=== PATIENT | female | born 1990 | race Caucasian/White ===

== ENCOUNTER → 2017-02-27 | Outpatient (CLI) | payer MEDICAID ==
--- NOTE | 2017-02-27 16:15 | Diagnostic Imaging Report ---
INDICATION: survey and cervical length evaluation. TECHNIQUE: Multiple real-time grayscale images were obtained over the gravid uterus. COMPARISON: None FINDINGS: heart rate is 140 beats per minute. The placenta is fundal. There is no placenta previa. There is adequate amniotic fluid seen. anatomy evaluation demonstrates normal size of the ventricles. The posterior fossa appears unremarkable. The urinary bladder appears unremarkable. There is suggestion of two umbilical arteries compatible with three-vessel cord. The cord insertion appears unremarkable. No hydronephrosis or cystic mass in the kidneys seen. The four-chamber view and the spine are not well seen due to position. The cervix is 4.9 cm in length and is closed. Biometrical measurements are as follows: Biparietal 4.1 cm, age 18 weeks 3 days. Head circumference 15.6 cm, age 18 weeks 4 days. Abdominal circumference 12.2 cm, age 17 weeks 6 days. Femur length 2.5 cm, age 17 weeks 5 days. Sonographic estimate age: 18 weeks 1 days. This compares to gestational age of 17 weeks and 6 days based on provided SANAZ of 08/01/2017. Sonographic estimated date of delivery: 07-30-2017. Estimated Weight: 211 gm (+/- +/-31 gm). LMP percentile: 42%. heart rate: 140 beats per minute. Cervical length: 4.9 cm. number: 1 of 1. IMPRESSION: Followup study within 2-3 weeks is recommended to reevaluate the spine and four-chamber view not well-seen due to position. Dictated by: Dictated on workstation # [id number]
== END ==
LOC: RAD 12:05
PROVIDERS: ATTEND Obstetrics & Gynecology
DX: Z34.92 Encounter for supervision of normal pregnancy, unspecified, second trimester (principal); Z36 Encounter for antenatal screening of mother
CPT/HCPCS: 76805; 76817

== ENCOUNTER → 2017-04-04 | Outpatient (CLI) | payer MEDICAID ==
--- NOTE | 2017-04-04 17:24 | Diagnostic Imaging Report ---
INDICATION: Followup obstetrical anatomy. TECHNIQUE: Multiple real-time grayscale images were obtained over the gravid uterus. COMPARISON: 02/27/2017. FINDINGS: There is a single viable intrauterine currently in a breech presentation. There is a visualization of four-chamber heart which appears unremarkable. There is continued suboptimal evaluation of the spine. Placenta is along the fundal aspect without previa. Normal amount of amniotic fluid appears to be present. heart rate: 130 beats per minute. Growth parameters not performed. IMPRESSION: Followup imaging demonstrates visualized cardiac structures appearing unremarkable. spine is again unable to be assessed. Dictated by: Dictated on workstation # [id number]
== END ==
LOC: RAD 14:18
PROVIDERS: ATTEND Obstetrics & Gynecology
DX: Z36 Encounter for antenatal screening of mother (principal)
CPT/HCPCS: 76816

== ENCOUNTER → 2017-04-26 | Outpatient (CLI) | payer MEDICAID ==
[~2017-04-26] MED LIST: ACET-77 PO; FERR-74 PO; IBUP-1773 PO
--- NOTE | 2017-04-26 16:06 | Diagnostic Imaging Report ---
INDICATION: Followup incomplete anatomical evaluation. TECHNIQUE: Multiple, limited real-time grayscale images were obtained over the gravid uterus. COMPARISON: 04/04/2017. FINDINGS: Fetus is currently in a breech presentation. Normal amount of amniotic fluid. Anteriorly positioned placenta without evidence for previa. cardiac activity at 144 beats per minute. The spine is better visualized on current study and has an unremarkable appearance. The remainder of the anatomical structures and/or biometrical measurements were not performed on this examination. IMPRESSION: Limited obstetrical sonogram imaging demonstrates a breech presentation of the fetus. spine has an unremarkable appearance. Dictated by: Dictated on workstation # [id number]
== END ==
LOC: RAD 13:13
PROVIDERS: ATTEND Obstetrics & Gynecology
DX: Z36 Encounter for antenatal screening of mother (principal); Z3A.00 Weeks of gestation of pregnancy not specified
CPT/HCPCS: 76816

== ENCOUNTER → 2017-06-27 | Outpatient (CLI) | payer MEDICAID ==
--- NOTE | 2017-06-27 14:01 | Diagnostic Imaging Report ---
INDICATION: Small for gestational age. TECHNIQUE: Multiple real-time grayscale images were obtained over the gravid uterus. COMPARISON: 04/26/2017. FINDINGS: There is a single living intrauterine . The biometry correlates with a gestational age of 35 weeks 3 days. The amniotic fluid index is 7.6 cm. The placenta is left lateral. There is no previa. The heart rate is 134 beats per minute and regular. IMPRESSION: Single living intrauterine with sonographically estimated gestational age of 35 weeks 3 days. This is concordant with gestational age by first sonogram which was 35 weeks 0 days. Biometrical measurements are as follows: Biparietal 8.7 cm, age 35 weeks 2 days. Head circumference 32.8 cm, age 37 weeks 2 days. Abdominal circumference 30.5 cm, age 34 weeks 3 days. Femur length 6.7 cm, age 34 weeks 2 days. Sonographic estimate age: 35 weeks 3 days. Sonographic estimated date of delivery: 07/29/17. Estimated Weight: 2504 gm (+/- 366 gm). LMP percentile: 39%. heart rate: 134 beats per minute. number: 1 of 1. Dictated by: Dictated on workstation # [id number]
== END ==
LOC: RAD 10:00
PROVIDERS: ATTEND Obstetrics & Gynecology
DX: Z36 Encounter for antenatal screening of mother (principal); Z3A.35 35 weeks gestation of pregnancy
CPT/HCPCS: 76816

== ENCOUNTER 2017-07-04 17:25 | Outpatient (CLI) | payer MEDICAID ==
[2017-07-04 18:30] VITALS: BP 117/78
--- NOTE | 2017-07-05 10:42 | Physician Query-Final Dx ---
MARIAN DAVIS 07/05/17 1041: Clinic Account Progress/Dx Physician Query: Please give diagnosis Date of Service Jul 04, 2017 at 17:25 OREN LAURA DO 07/05/17 1252: Clinic Account Progress/Dx DIAGNOSIS: Diagnosis decreased movement MARIAN DAVIS Jul 05, 2017 10:41 OREN LAURA DO Jul 05, 2017 12:52
[2017-07-27] MEDS ORDERED: ACET-77 PO (08:51)
[2017-07-27] MEDS ORDERED: IBUP-1773 PO (08:51)
[2017-07-27] MEDS ORDERED: FERR-74 PO (08:51)
== END 2017-07-04 18:50 | disposition home or self-care (01) ==
LOC: WSo 17:25 → LDRP 17:26 → WSo 18:50
PROVIDERS: ATTEND Obstetrics & Gynecology
DX: O36.8130 Decreased fetal movements, third trimester, not applicable or unspecified (principal); Z3A.36 36 weeks gestation of pregnancy
CPT/HCPCS: 59025

== ENCOUNTER 2017-07-25 07:50 | Inpatient (IN) | payer MEDICAID ==
[2017-07-25] VITALS (45 sets, daily range): BP systolic 89–137; BP diastolic 46–76
[~2017-07-25] VITALS: Ht 157.5 cm; Wt 94.3 kg
[2017-07-25] MEDS ORDERED: D5 LR IV SOLUTION 1,000 ML IV ONE (08:37)
[2017-07-25] MEDS ORDERED: MINERAL OIL CONCENTRATE 99.9% 15 ML UDC TOP PRN (08:45)
[2017-07-25] MEDS ORDERED: MISOPROSTOL 100 MCG (CYTOTEC) TAB PO NR (08:45)
[2017-07-25 08:46] LABS: BASOPHILS % (AUTO) 0 % (0-10); EOSINOPHILS # (AUTO) 0.1 10^3/uL (0.0-0.3); EOSINOPHILS % (AUTO) 2 % (0-10); LYMPHOCYTES # (AUTO) 1.9 X 10^3 (1.0-4.0); LYMPHOCYTES % (AUTO) 26 % (12-44); MEAN CORPUSCULAR HEMOGLOBIN 27 PG (25-34); MEAN CORPUSCULAR HGB CONC 33 G/DL (32-36); MEAN CORPUSCULAR VOLUME 80 FL (80-99); MEAN PLATELET VOLUME 10.9 FL (7.4-10.4); MONOCYTES # (AUTO) 0.4 X 10^3 (0.0-1.0); MONOCYTES % (AUTO) 5 % (0-12); NEUTROPHILS # (AUTO) 4.9 X 10^3 (1.8-7.8); NEUTROPHILS % (AUTO) 67 % (42-75); PLATELET COUNT 302 10^3/uL (130-400); RED BLOOD COUNT 4.18 10^6/uL (4.35-5.85); RED CELL DISTRIBUTION WIDTH 13.6 % (10.0-14.5); WHITE BLOOD COUNT 7.3 10^3/uL (4.3-11.0)
[2017-07-25] MEDS: D5 LR IV SOLUTION 1,000 ML IV SCH ×2 (08:47→16:29)
[2017-07-25 08:52] LABS: BILIRUBIN,URINE NEGATIVE (NEGATIVE); KETONES,URINE NEGATIVE (NEGATIVE); LEUKOCYTE ESTERASE ,URINE 1+ (NEGATIVE); NITRITE,URINE NEGATIVE (NEGATIVE); PH,URINE 7 (5-9); PROTEIN,URINE 1+ (NEGATIVE); UROBILINOGEN,URINE NORMAL (NORMAL)
[2017-07-25 09:08] LABS: WBC,URINE RARE /HPF
[2017-07-25] MEDS ORDERED: MISOPROSTOL 100 MCG (CYTOTEC) TAB PO ONE (13:30)
[2017-07-25] MEDS ORDERED: SUFENTA 0.6MCG/ML BUPIVA 0.125 100 ML ONE (14:03)
[2017-07-25] MEDS ORDERED: LACTATED RINGERS 1,000 ML IV SCH (15:11)
[2017-07-25] MEDS ORDERED: diphenhydrAMINE 50 MG/ML INJ (BENADRYL) IV PRN (15:15)
[2017-07-25] MEDS ORDERED: NALOXONE 0.4 MG/ML 1 ML (NARCAN) VIAL IV PRN ×2 (15:15)
[2017-07-25] MEDS ORDERED: ONDANSETRON 4 MG/2 ML (SDV) Z0FRAN IV PRN (15:15)
[2017-07-25] MEDS ORDERED: EPIDURAL (SUFENTA 0.6MCG/ML BUPIVA 0.125%) 100 ML BAG EPI SCH (15:15)
[2017-07-25] MEDS ORDERED: METOCLOPRAMIDE INJ 10 MG/2 ML (REGLAN) IV PRN (15:15)
[2017-07-25] MEDS ORDERED: OXYTOCIN/NORMAL SALINE 500 ML IV ONE (18:09)
[2017-07-25] MEDS ORDERED: OXYTOCIN/NORMAL SALINE 500 ML IV SCH ×2 (18:14→23:11)
[2017-07-25] MEDS ORDERED: FAMOTIDINE 20MG/2ML IV (PEPCID) ONE (19:39)
[2017-07-25] MEDS ORDERED: CITRIC ACID/SOB CIT (BICITRA) 30 ML UDC ONE (19:39)
[2017-07-25] MEDS ORDERED: LIDOCAINE/EPI 2% 1:200,00 (XYLOCAINE) 10 ML VIAL ONE (22:37)
[2017-07-25] MEDS ORDERED: MEASLES,MUMPS,RUBELLA 1 EA INJ SQ ONE (23:15)
[2017-07-25] MEDS ORDERED: TETANUS,DIPTH,PERTUSS P/F (BOOSTRIX) 0.5 ML VIAL IM ONE (23:15)
[2017-07-25] MEDS ORDERED: WITCH HAZEL(TUCKS) 40 EA JAR TOP PRN (23:15)
[2017-07-25] MEDS ORDERED: ACETAMINOPHEN 500 MG TAB (TYLENOL) PO PRN (23:15)
[2017-07-25] MEDS ORDERED: DIBUCAINE (NUPERCAINAL) 1% OINT 30 GM TOP PRN (23:15)
[2017-07-25] MEDS ORDERED: BENZOCAINE/MENTHOL (DERMOPLAST) 56 ML CAN TP PRN (23:15)
--- NOTE | 2017-07-25 23:35 | OB Labor & Delivery Record ---
Vag Delivery Note Vag Delivery Note Date of Delivery: 07/25/17 Preoperative Diagnosis: Teresa Arreaga is a 26 /Para 4 /3 ,Gestational Age 39 weeks for social induction Postoperative Diagnosis: Same Surgeon: OREN LAURA Anesthesia: epidural Delivery Type: vaginal Findings: Viable male , apgars 9/9, weight 6#8oz Lacerations: Intact placenta with 3 vessel cord. No nuchal cord, body cord or shoulder dystocia Estimated Blood Loss: 200 ml Complications: None Condition: Stable Description of Procedure: The patient is a 26 /Para 4 /3 ,Gestational Age 39 weeks for social induction]. She was admitted and informed consent was obtained. Her labor course was remarkable for misoprostol x 2 doses then AROM and pitocin. She did have a category II tracing in active labor with variable decelerations but there continued to be variability and accelerations. She progressed to complete dilatation and began to push. She was then set up for delivery. The 's head was delivered atraumatically in the MARIO position with a compound presentation (right hand at cheek and looped cord through arm). The shoulders and remainder of the infant's body were then delivered without difficulty. Upon delivery, the head was held below the level of the perineum and the mouth and nares were bulb suctioned. The cord was doubly clamped and cut and the infant was handed off to the pediatric staff. An intact placenta with 3-vessel cord delivered via Vickie and there was found to be minimal bleeding.~ Vigorous fundal massage was performed and the fundus was found to be firm. IV oxytocin was given. Examination of the vagina and perineum revealed a no lacerations. Following the delivery, sponge, instrument and needle counts were correct. Mom and baby were both in stable condition in the labor suite. Vitals - Labs Vital Signs - I&O Vital Signs Date Time Temp Pulse Resp B/P (MAP) Pulse Ox O2 Delivery O2 Flow Rate FiO2 07/25/17 21:00 67 18 102/50 Room Air 07/25/17 20:45 73 18 96/51 Room Air 07/25/17 20:30 70 18 113/59 Room Air 07/25/17 20:15 67 18 127/58 Room Air 07/25/17 20:00 68 18 111/58 Room Air 07/25/17 19:45 72 18 137/62 Room Air 07/25/17 19:30 97.8 70 18 112/59 Room Air 07/25/17 19:15 65 18 106/57 Room Air 07/25/17 19:00 64 18 109/58 Room Air 07/25/17 18:15 68 18 102/58 Room Air 07/25/17 18:00 62 18 110/58 Room Air 07/25/17 17:45 67 18 115/63 Room Air 07/25/17 17:30 68 18 114/57 Room Air 07/25/17 17:15 75 18 112/68 Room Air 07/25/17 17:00 96.6 64 18 110/71 Room Air 07/25/17 16:45 72 18 111/66 Room Air 07/25/17 16:30 72 18 107/61 100 Room Air 07/25/17 16:15 Room Air 07/25/17 16:00 69 18 105/64 98 Room Air 07/25/17 15:45 77 18 99 Room Air 07/25/17 15:30 97.5 59 18 99 Room Air 07/25/17 15:25 75 18 122/59 99 Room Air 07/25/17 15:22 83 18 120/59 98 Room Air 07/25/17 15:15 69 18 115/60 98 Room Air 07/25/17 15:13 75 113/58 Room Air 07/25/17 15:10 77 117/55 99 Room Air 07/25/17 15:05 65 124/58 99 Room Air 07/25/17 15:00 73 18 122/61 100 Room Air 07/25/17 14:58 74 117/58 Room Air 07/25/17 14:55 76 125/63 100 Room Air 07/25/17 14:50 74 126/62 100 Room Air 07/25/17 14:45 71 128/62 07/25/17 14:10 72 18 124/74 Room Air 07/25/17 13:10 96.9 71 18 117/58 Room Air 07/25/17 11:10 74 18 112/59 Room Air 07/25/17 08:05 96.9 114 18 113/74 Room Air I & O 07/26/17 07:00 Intake Total 1000 ml Balance 1000 ml Labs Laboratory Tests 07/25/17 08:20: White Blood Count 7.3, Red Blood Count 4.18L, Hemoglobin 11.1L, Hematocrit 34L, Mean Corpuscular Volume 80, Mean Corpuscular Hemoglobin 27, Mean Corpuscular Hemoglobin Concent 33, Red Cell Distribution Width 13.6, Platelet Count 302, Mean Platelet Volume 10.9H, Neutrophils (%) (Auto) 67, Lymphocytes (%) (Auto) 26 , Monocytes (%) (Auto) 5, Eosinophils (%) (Auto) 2, Basophils (%) (Auto) 0, Neutrophils # (Auto) 4.9, Lymphocytes # (Auto) 1.9, Monocytes # (Auto) 0.4, Eosinophils # (Auto) 0.1, Basophils # (Auto) 0.0 07/25/17 08:30: Urine Color YELLOW, Urine Clarity CLEAR, Urine pH 7, Urine Specific [place] 1.010L, Urine Protein 1+H, Urine Glucose (UA) NEGATIVE, Urine Ketones NEGATIVE, Urine Nitrite NEGATIVE, Urine Bilirubin NEGATIVE, Urine Urobilinogen NORMAL, Urine Leukocyte Esterase 1+H, Urine RBC (Auto) NEGATIVE, Urine RBC NONE, Urine WBC RARE, Urine Squamous Epithelial Cells 2-5, Urine Crystals NONE, Urine Bacteria NEGATIVE, Urine Casts NONE, Urine Mucus NEGATIVE, Urine Culture Indicated NO OREN LAURA DO Jul 25, 2017 23:35
[2017-07-26] VITALS (15 sets, daily range): BP systolic 92–116; BP diastolic 46–73
[2017-07-26] MEDS: IBUPROFEN 600 MG (MOTRIN) TAB PO SCH ×4 (02:15→20:02)
[2017-07-26 05:52] LABS: BASOPHILS % (AUTO) 0 % (0-10); EOSINOPHILS # (AUTO) 0.1 10^3/uL (0.0-0.3); EOSINOPHILS % (AUTO) 1 % (0-10); LYMPHOCYTES # (AUTO) 2.3 X 10^3 (1.0-4.0); LYMPHOCYTES % (AUTO) 23 % (12-44); MEAN CORPUSCULAR HEMOGLOBIN 27 PG (25-34); MEAN CORPUSCULAR HGB CONC 33 G/DL (32-36); MEAN CORPUSCULAR VOLUME 82 FL (80-99); MEAN PLATELET VOLUME 11.3 FL (7.4-10.4); MONOCYTES # (AUTO) 0.9 X 10^3 (0.0-1.0); MONOCYTES % (AUTO) 9 % (0-12); NEUTROPHILS # (AUTO) 6.7 X 10^3 (1.8-7.8); NEUTROPHILS % (AUTO) 67 % (42-75); PLATELET COUNT 259 10^3/uL (130-400); RED BLOOD COUNT 3.73 10^6/uL (4.35-5.85); RED CELL DISTRIBUTION WIDTH 13.6 % (10.0-14.5)
[2017-07-26] MEDS: CATHETER FLUSH 10 ML SYR IV SCH ×4 (08:35→14:28)
[2017-07-26] MEDS: PRENATAL VITAMIN 1 EA TAB PO SCH (08:35)
[2017-07-26] MEDS: FERROUS SULF 325 MG (IRON) TAB PO SCH (08:35)
--- NOTE | 2017-07-26 14:08 | Anesthesia-Regional Post-Op ---
Regional Patient Condition Mental Status: Alert, Oriented x3 Circulation: Same as Pre-Op Headache: Absent Sensation: Full Recovery Motor Block: Absent Post Op Complications Complications None Follow Up Care/Instructions Patient Instructions None needed. Anesthesia/Patient Condition Patient is doing well, no complaints, stable vital signs, no apparent adverse anesthesia problems. No complications reported per nursing. DARCY JOHNSON CRNA Jul 26, 2017 14:08
--- NOTE | 2017-07-26 21:34 | Progress Note-Standard ---
Standard Progress Note Progress Notes/Assess & Plan Date Seen by Provider: Jul 26, 2017 Time Seen by Provider: 17:40 Progress/Assessment & Plan Doing well. Some cramping with breast feeding. Vital Signs 07/26/17 16:09 Temp 96.7 Pulse 79 Resp 16 B/P (MAP) 106/69 Pulse Ox 96 O2 Delivery Room Air Laboratory Tests Test 07/26/17 05:30 Range/Units White Blood Count 10.0 4.3-11.0 10^3/uL Red Blood Count 3.73 L 4.35-5.85 10^6/uL Hemoglobin 10.0 L 11.5-16.0 G/DL Hematocrit 30 L 35-52 % Mean Corpuscular Volume 82 80-99 FL Mean Corpuscular Hemoglobin 27 25-34 PG Mean Corpuscular Hemoglobin Concent 33 32-36 G/DL Red Cell Distribution Width 13.6 10.0-14.5 % Platelet Count 259 130-400 10^3/uL Mean Platelet Volume 11.3 H 7.4-10.4 FL Neutrophils (%) (Auto) 67 42-75 % Lymphocytes (%) (Auto) 23 12-44 % Monocytes (%) (Auto) 9 0-12 % Eosinophils (%) (Auto) 1 0-10 % Basophils (%) (Auto) 0 0-10 % Neutrophils # (Auto) 6.7 1.8-7.8 X 10^3 Lymphocytes # (Auto) 2.3 1.0-4.0 X 10^3 Monocytes # (Auto) 0.9 0.0-1.0 X 10^3 Eosinophils # (Auto) 0.1 0.0-0.3 10^3/uL Basophils # (Auto) 0.0 0.0-0.1 10^3/uL PPD #1 s/p Mild acute blood loss anemia, on iron. Plan dc tomorrow OREN LAURA DO Jul 26, 2017 9:34 pm
[2017-07-27 02:15] VITALS: BP 104/67
[2017-07-27] MEDS: IBUPROFEN 600 MG (MOTRIN) TAB PO SCH ×2 (02:55→09:00)
[2017-07-27 08:45] VITALS: BP 105/54
[2017-07-27] MEDS ORDERED: FERR-74 PO (08:51)
[2017-07-27] MEDS ORDERED: ACET-77 PO (08:51)
[2017-07-27] MEDS ORDERED: IBUP-1773 PO (08:51)
--- NOTE | 2017-07-27 08:52 | Discharge Inst-Women's Service ---
Discharge Inst-Women's Serv Depart Medication/Instructions New, Converted or Re-Newed RX: RX on Chart Final Diagnosis social induction vaginal delivery mild acute blood loss anemia Consults/Follow Up Additional Follow Up: Yes (6 weeks) Activity Activity: Activity as Tolerated Driving Instructions: You May Drive NO SMOKING: NO SMOKING Nothing Inside Vagina: No Douching, No Goehner, No Tampons Diet Discharge Diet: No Restrictions Symptoms to Report to : Swelling Increased, Bleeding Excessive, Fever Over 101 Degrees F, Vaginal Bleeding Increase, Cramps in Feet or Legs, Vaginal Discharge OREN Munson DO Jul 27, 2017 8:52 am
[2017-07-27] MEDS: FERROUS SULF 325 MG (IRON) TAB PO SCH (09:00)
[2017-07-27] MEDS: PRENATAL VITAMIN 1 EA TAB PO SCH (09:00)
[2017-07-27] MEDS ORDERED: MEASLES,MUMPS,RUBELLA 1 EA INJ ONE (11:08)
== END 2017-07-27 11:55 | disposition home or self-care (01) | DRG 775 ==
LOC: LDRP 07:50
PROVIDERS: ADMIT Obstetrics & Gynecology; ATTEND Obstetrics & Gynecology
PROC: 10E0XZZ Delivery of Products of Conception, External Approach (ICD-10-PCS; principal; 2017-07-25)
PROC: 3E0P7GC Introduction of Other Therapeutic Substance into Female Reproductive, Via Natural or Artificial Opening (ICD-10-PCS; 2017-07-25)
DX: O90.81 Anemia of the puerperium (principal); D62 Acute posthemorrhagic anemia; Z3A.39 39 weeks gestation of pregnancy; Z37.0 Single live birth; Z23 Encounter for immunization; Z87.891 Personal history of nicotine dependence
CPT/HCPCS: 36415; 81000; 85025; 86850; 86900; 86901; 87088; 90707

== ENCOUNTER 2018-02-22 21:55 | Emergency (ER) | payer MEDICAID ==
[~2018-02-22] VITALS: Ht 157.5 cm; Wt 94.3 kg
[~2018-02-22 21:55] MED LIST changes: -FERR-74 PO; +FERR325T18 PO
[2018-02-22] MEDS ORDERED: PRAZ1CAP2 (22:33)
[2018-02-22] MEDS ORDERED: LAMO150T2 (22:33)
[2018-02-22] MEDS ORDERED: PARO40TA3 (22:33)
--- NOTE | 2018-02-22 23:13 | ED Lower Extremity ---
General Chief Complaint: Lower Extremity Stated Complaint: LEG INJ Nursing Triage Note: right leg pain Nursing Sepsis Screen: No Definite Risk History of Present Illness Date Seen by Provider: February 22, 2018 Time Seen by Provider: 23:00 Initial Comments 27-year-old female reports falling approximately 3-1/2 foot off of a porch landing on her right ankle. She is reporting pain in her right ankle and an abrasion just below her right knee. She is current on her tetanus shot. She' s had previous sprains to her right ankle but no surgeries. She denies head injury at the time of the fall. She does report that she was drinking vodka. She is a proximally 7 months and is breast-feeding. Onset: just prior to arrival Pain/Injury Location: right knee, right ankle Method of Injury: fell Modifying Factors: Improves With Immobilization, Improves With Rest Allergies and Home Medications Allergies Coded Allergies: No Known Drug Allergies (Unverified , 07/25/17) Home Medications Hydrocodone Bit/Acetaminophen 1 Tab Tab, 1 EACH PO Q6H PRN for PAIN Prescribed by: TATIANNA TUCKER on 02/22/18 9548 Patient Home Medication List Home Medication List Reviewed: Yes Constitutional: no symptoms reported, see HPI Musculoskeletal: see HPI, joint pain, joint swelling Skin: see HPI, other (superficial abrasion to the right leg, just below the knee.) Past Mioajze-Borsmh-Oujexx Hx Past Med/Social Hx: Reviewed Nursing Past Med/Soc Hx Patient Social History Alcohol Use: Regular Use Number of Drinks Today: 4 Alcohol Beverage of Choice: Wine, Vodka Recreational Drug Use: No Smoking Status: Current Everyday Smoker Type Used: Cigarettes Former Smoker, Quit: Jan 22, 2016 Recent Foreign Travel: No Contact w/Someone Who Travel: No Recent Infectious Disease Expo: No Recent Hopitalizations: No Immunizations Up To Date Tetanus Booster (TDap): Less than 5yrs PED Vaccines UTD: Yes Date of Influenza Vaccine: Jul 12, 2017 Seasonal Allergies Seasonal Allergies: No Past Medical History Surgeries: Yes (dental) Tonsillectomy Respiratory: No Cardiac: No Neurological: No : No Female Reproductive Disorders: Denies Sexually Transmitted Disease: No HIV/AIDS: No Genitourinary: No Gastrointestinal: No Musculoskeletal: Yes Scoliosis Endocrine: No HEENT: No Cancer: No Psychosocial: Yes PTSD, Bipolar Integumentary: No Blood Disorders: No Adverse Reaction/Blood Tranf: No Family Medical History Patient reports no known family medical history. Physical Exam Vital Signs Vital Signs - First Documented 02/22/18 22:34 Temp 97.7 Pulse 105 Resp 20 B/P (MAP) 132/102 (112) Pulse Ox 98 O2 Delivery Room Air Capillary Refill : Less Than 3 Seconds General Appearance: WD/WN, no apparent distress HEENT: PERRL/EOMI, normal ENT inspection, TMs normal, pharynx normal Neck: non-tender, full range of motion, supple, normal inspection Cardiovascular: normal peripheral pulses, regular rate, rhythm, no murmur Respiratory: chest non-tender, lungs clear, normal breath sounds, no respiratory distress Gastrointestinal: normal bowel sounds, non tender, soft Knees: right knee non-tender, right knee normal inspection, right knee normal range of motion Ankles: right ankle bone tenderness (most significantly over the medial malleolus), right ankle limited range of motion (secondary to pain), right ankle pain, right ankle soft tissue tenderness, right ankle swelling Feet: right foot non-tender, right foot no evidence of injury Neurologic/Tendon: normal sensation, normal motor functions, normal tendon functions Neurologic/Psychiatric: no motor/sensory deficits, alert, normal mood/affect, oriented x 3 Skin: normal color, warm/dry, other (superficial abrasion to right leg just distal to the knee) Procedures/Interventions Splinting and Joint Reduction : Pre-Proc Neuro Vasc Exam: normal Post-Proc Neuro Vasc Exam: normal Grey wrap: Yes Hand-Made Type: orthoglass Splint Application: Short Leg Progress/Results/Core Measures Results/Orders My Orders Orders - TATIANNA TUCKER Knee, Right, 3 Views (02/22/18 22:41) Ankle, Right, 3 Views (02/22/18 23:02) Rx-Hydrocodone/Apap 5-325 Mg (Rx-Vicodin (02/22/18 23:30) Tramadol Tablet (Ultram Tablet) (02/22/18 23:32) Medications Given in ED Current Medications Medications Dose Ordered Sig/Josselyn Route Start Time Stop Time Status Last Admin Dose Admin Acetaminophen/ Hydrocodone Bitart 1 ea Q4H PRN PO 02/22/18 23:30 02/22/18 23:41 DC 02/22/18 23:36 1 EA Vital Signs/I&O 02/22/18 02/22/18 02/22/18 22:34 23:36 23:37 Temp 97.7 97.7 97.8 Pulse 105 103 Resp 20 18 B/P (MAP) 132/102 (112) 121/80 Pulse Ox 98 97 O2 Delivery Room Air Room Air Blood Pressure Mean: 112 Progress Progress Note : Time: 23:00 Progress Note Initial evaluation completed, wound to the right leg with chlorhexidine and sterile saline. X-rays of the right ankle and right knee. 2320 x-rays show a trimalleolar fracture of the right ankle, discussed patient with Dr. Baer per phone agreed with treatment to splint and follow-up with him early next week for surgical plans. 2330 posterior and sugar tong splint applied with Ortho-Glass and secured with Grey wrap's. Patient tolerated splint application well, neurovascular status intact post splinting. Discharge instructions and return precautions reviewed with the patient. Departure Impression Primary Impression: Closed right trimalleolar fracture Qualified Codes: S82.851A - Displaced trimalleolar fracture of right lower leg , initial encounter for closed fracture Additional Impressions: Fall Qualified Codes: W19.XXXA - Unspecified fall, initial encounter Acute alcohol intoxication Qualified Codes: F10.929 - Alcohol use, unspecified with intoxication, unspecified Disposition: 01 HOME, SELF-CARE Condition: Stable Departure-Patient Inst. Decision time for Depature: 23:15 Referrals: NO,LOCAL PHYSICIAN (PCP/Family) Primary Care Physician Patient Instructions: Ankle Fracture (DC) Add. Discharge Instructions: Call Ortho [address] [place] [address] for follow up with Dr. Baer, he will see you early next week and plan surgery. Use crutches at all times, nonweight bearing on the right lower extremity. Leave your splint on at all times. Keep it clean and dry. You may take ibuprofen 600 mg every 8 hours for pain. Use your pain medication for hydrocodone for additional pain. Do not breast feed if taking the Hydrocodone. Keep your right ankle elevated higher than your heart. Ice to your right ankle 20 minutes every 2 hours while awake. Follow-up with your primary care provider if symptoms are not improving or worsen. Return to emergency department for new urgent health care problems. All discharge instructions reviewed with patient and/or family. Voiced understanding. Scripts Hydrocodone Bit/Acetaminophen (Hydrocodone/Acetaminophen 5/325mg Tablet) 1 Tab Tab 1 EACH PO Q6H PRN for PAIN, #20 TAB 0 Refills Prov: TATIANNA TUCKER 02/22/18 Copy Copies To 1: INES BAER AMY ARNP February 22, 2018 23:13
[2018-02-22] MEDS ORDERED: ACHD5005 PO (23:21)
[2018-02-22] MEDS ORDERED: RX-HYDROCODONE/APAP 5/325 MG #4 TAB PK PO PRN (23:30)
[2018-02-22 23:37] VITALS: BP 121/80
--- NOTE | 2018-02-23 07:10 | Diagnostic Imaging Report ---
INDICATION: Right knee injury and pain AP, lateral and oblique views of the right knee are obtained. FINDINGS: No acute fracture or dislocation is identified. No abnormal lytic or sclerotic focus is seen, and there is no radiopaque foreign body. IMPRESSION: No acute abnormality. Dictated by: Dictated on workstation # [id number]
--- NOTE | 2018-02-23 07:13 | Diagnostic Imaging Report ---
INDICATION: Right ankle pain and swelling AP, oblique and lateral views of the right ankle reveal comminuted trimalleolar fracture. There is mild displacement of medial malleolar fracture with intra-articular extension. There is also mild angulation of the distal fibular shaft fracture which involves the lateral malleolus. There is mild displacement of the posterior tibial fracture with mild offset of articular surfaces. Extensive swelling is noted. IMPRESSION: Comminuted trimalleolar right ankle fracture with intra-articular extension as described. Dictated by: Dictated on workstation # [id number]
== END 2018-02-22 23:41 | disposition home or self-care (01) ==
LOC: EDUNIT# 21:55 → ER 21:56
DX: S82.851A Displaced trimalleolar fracture of right lower leg, initial encounter for closed fracture (principal); F10.129 Alcohol abuse with intoxication, unspecified; F43.10 Post-traumatic stress disorder, unspecified; F31.9 Bipolar disorder, unspecified; F17.210 Nicotine dependence, cigarettes, uncomplicated; Z90.89 Acquired absence of other organs; W13.8XXA Fall from, out of or through other building or structure, initial encounter
CPT/HCPCS: 29515; 73562; 73610

== ENCOUNTER 2018-05-21 10:39 | Inpatient (IN) | payer MEDICAID ==
[~2018-05-21] VITALS: Ht 157.5 cm; Wt 49.9 kg
[~2018-05-21 10:39] MED LIST changes: +ACHD5005 PO; +LAMO150T2; +PARO40TA3; +PRAZ1CAP2
--- OUTSIDE RECORDS SUMMARY | 2018-05-21 10:45 | XMS REPORT ---
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 Name Role Phone GULSHAN QUIROGAMUSA Unavailable PROBLEMS Type Condition ICD9-CM Code JET09-SS Code Onset Dates Condition Status SNOMED Code Problem Bipolar II disorder F31.81 Active 23322417 Problem PTSD (post-traumatic stress disorder) F43.10 Active 27160617 Problem Bipolar disorder, unspecified F31.9 Active 53145184 Problem Post-traumatic stress disorder, chronic F43.12 Active 99981794 ALLERGIES No Known Allergies ENCOUNTERS Encounter Location Date Diagnosis [facility] [id number] [place] [phone] February, [facility] [id number] [place] [phone] Jan, Post-traumatic stress disorder, chronic F43.12 ; Bipolar disorder, unspecified F31.9 ; Bipolar II disorder F31.81 ; PTSD (post-traumatic stress disorder) F43.10 and BMI 40.0-44.9, adult Z68.41 [facility] [id number] [place] [phone] Dec, [facility] [id number] [place] [phone] Dec, Post-traumatic stress disorder, chronic F43.12 ; Bipolar disorder, unspecified F31.9 ; Bipolar II disorder F31.81 and PTSD (post- traumatic stress disorder) F43.10 [facility] [address], [place] [address] Nov, [facility] [id number] [place] [phone] Oct, Post-traumatic stress disorder, chronic F43.12 and Bipolar disorder, unspecified F31.9 [facility] [address] [facility] [id number] [place] [address] Oct, Bipolar II disorder F31.81 ; PTSD (post-traumatic stress disorder) F43.10 and Generalized anxiety disorder F41.1 [facility] [address] [facility] [id number] [address] Oct, Post-traumatic stress disorder, chronic F43.12 and Bipolar disorder, unspecified F31.9 [facility] [address] [facility] [id number], [place] [phone] Dec, Acute left otitis media H66.92 IMMUNIZATIONS No Known Immunizations SOCIAL HISTORY Never Assessed REASON FOR VISIT f/u PLAN OF CARE Activity Details Follow Up 4 Weeks Reason: VITAL SIGNS Height 62 in 2017-12-29 Weight 212.4 lbs 2017-12-29 Heart Rate 80 bpm 2017-12-29 Respiratory Rate 20 2017-12-29 BMI 38.84 kg/m2 2017-12-29 Blood pressure systolic 120 mmHg 2017-12-29 Blood pressure diastolic 72 mmHg 2017-12-29 MEDICATIONS Medication Instructions Dosage Frequency Start Date End Date Duration Status Prazosin HCl 1 MG Orally Once a day at bedtime 1 capsule Oct, 30 day(s) Active Paxil 40 mg Orally Once a day 1.5 tablets 24h Oct, 30 day(s) Active Lamictal 25 MG Orally Once a day 6 tablet 24h Oct, Active RESULTS No Results PROCEDURES No Known procedures INSTRUCTIONS MEDICATIONS ADMINISTERED No Known Medications MEDICAL (GENERAL) HISTORY Type Description Date Medical History asthma Medical History PTSD
--- OUTSIDE RECORDS SUMMARY | 2018-05-21 10:45 | XMS REPORT ---
Author Author JENNA QUIROGA [address] Address [address] [place] [address] Care Team Providers Care Air Conditioning Mechanic Industrial Name Role Phone GULSHAN QUIROGAMUSA Unavailable PROBLEMS Type Condition ICD9-CM Code [id number] Code Onset Dates Condition Status SNOMED Code Problem Bipolar II disorder F31.81 Active 86536602 Problem PTSD (post-traumatic stress disorder) F43.10 Active 33201144 Problem Bipolar disorder, unspecified F31.9 Active 91105751 Problem Post-traumatic stress disorder, chronic F43.12 Active 18837053 ALLERGIES No Information ENCOUNTERS Encounter Location Date Diagnosis [place] [id number] [place] [address]47[address] February, [place] [id number] [place] [address]95[address] 0913 Jan, Post-traumatic stress disorder, chronic F43.12 ; Bipolar disorder, unspecified F31.9 ; Bipolar II disorder F31.81 ; PTSD (post-traumatic stress disorder) F43.10 and BMI 40.0-44.9, adult Z68.41 [place] [id number] [place] [address]4826[address]446 Dec, [place] [id number] [place] [address] 19436- 6777 Dec, Post-traumatic stress disorder, chronic F43.12 ; Bipolar disorder, unspecified F31.9 ; Bipolar II disorder F31.81 and PTSD (post- traumatic stress disorder) F43.10 [place] [id number] [place] [address] 41002- 0095 Nov, [place] [id number] [place] [address] 58088- 8811 Oct, Post-traumatic stress disorder, chronic F43.12 and Bipolar disorder, unspecified F31.9 [facility] [address] [facility] [id number] [address] Oct, Bipolar II disorder F31.81 ; PTSD (post-traumatic stress disorder) F43.10 and Generalized anxiety disorder F41.1 [facility] [address] [facility] [id number] [address] Oct, Post-traumatic stress disorder, chronic F43.12 and Bipolar disorder, unspecified F31.9 [facility] [address] [facility] [id number] [place] [address] Dec, Acute left otitis media H66.92 IMMUNIZATIONS No Known Immunizations SOCIAL HISTORY Never Assessed REASON FOR VISIT Medication refill request PLAN OF CARE VITAL SIGNS MEDICATIONS Medication Instructions Dosage Frequency Start Date End Date Duration Status Lamictal 150 MG Orally Once a day 1 tablet 24h Oct, 30 days Active RESULTS No Results PROCEDURES No Known procedures INSTRUCTIONS MEDICATIONS ADMINISTERED No Known Medications MEDICAL (GENERAL) HISTORY Type Description Date Medical History asthma Medical History PTSD
--- OUTSIDE RECORDS SUMMARY | 2018-05-21 10:45 | XMS REPORT ---
Author Author ZEFERINO BREAUX Organization [facility] Address [address] [place] [address] Care Team Providers Care Sprinkler Tender Name Role Phone ZEFERINO BREAUX Unavailable PROBLEMS Type Condition ICD9-CM Code HLO16-ZO Code Onset Dates Condition Status SNOMED Code Problem Bipolar II disorder F31.81 Active 24272175 Problem PTSD (post-traumatic stress disorder) F43.10 Active 84052090 Problem Bipolar disorder, unspecified F31.9 Active 41858048 Problem Post-traumatic stress disorder, chronic F43.12 Active 56483260 ALLERGIES No Information ENCOUNTERS Encounter Location Date Diagnosis [place] [address] [place] [address]264- [address]28 February, [place] [id number] [place] [address]62- 5201 Jan, Post-traumatic stress disorder, chronic F43.12 ; Bipolar disorder, unspecified F31.9 ; Bipolar II disorder F31.81 ; PTSD (post-traumatic stress disorder) F43.10 and BMI 40.0-44.9, adult Z68.41 [address] [address] Dec, [address] [place] [address] 21295- 2201 Dec, Post-traumatic stress disorder, chronic F43.12 ; Bipolar disorder, unspecified F31.9 ; Bipolar II disorder F31.81 and PTSD (post- traumatic stress disorder) F43.10 [place] [address] [address] Nov, [place] [address] [place] [id number] [place] [address] 74928[address] 59[address] Oct, Post-traumatic stress disorder, chronic F43.12 and Bipolar disorder, unspecified F31.9 [facility] [address] [place] [id number] [address] Oct, Bipolar II disorder F31.81 ; PTSD (post-traumatic stress disorder) F43.10 and Generalized anxiety disorder F41.1 [facility] [address] [place] [id number] [address] Oct, Post-traumatic stress disorder, chronic F43.12 and Bipolar disorder, unspecified F31.9 [facility] [address] [facility] [id number] [address] Dec, Acute left otitis media H66.92 IMMUNIZATIONS No Known Immunizations SOCIAL HISTORY Never Assessed REASON FOR VISIT Requests return call PLAN OF CARE VITAL SIGNS MEDICATIONS Unknown Medications RESULTS No Results PROCEDURES No Known procedures INSTRUCTIONS MEDICATIONS ADMINISTERED No Known Medications MEDICAL (GENERAL) HISTORY Type Description Date Medical History asthma Medical History PTSD
--- OUTSIDE RECORDS SUMMARY | 2018-05-21 10:45 | XMS REPORT ---
Author Author ZEFERINO BREAUX Organization [facility] Address [address] [place] [address] Care Team Providers Care Guest Experience Representative Name Role Phone ZEFERINO BREAUX Unavailable PROBLEMS Type Condition ICD9-CM Code [id number] Code Onset Dates Condition Status SNOMED Code Problem Bipolar II disorder F31.81 Active 45635021 Problem PTSD (post-traumatic stress disorder) F43.10 Active 04527241 Problem Bipolar disorder, unspecified F31.9 Active 95752783 Problem Post-traumatic stress disorder, chronic F43.12 Active 46999860 ALLERGIES No Information ENCOUNTERS Encounter Location Date Diagnosis [place] [address] [place] [address]20[address] February, [place] [id number] [place] [address]99[address] Jan, Post-traumatic stress disorder, chronic F43.12 ; Bipolar disorder, unspecified F31.9 ; Bipolar II disorder F31.81 ; PTSD (post-traumatic stress disorder) F43.10 and BMI 40.0-44.9, adult Z68.41 [address] [address] Dec, [address] [place] [address] 09681- 53[address] Dec, Post-traumatic stress disorder, chronic F43.12 ; Bipolar disorder, unspecified F31.9 ; Bipolar II disorder F31.81 and PTSD (post- traumatic stress disorder) F43.10 [place] [address] [address] Nov, [place] [address] [place] [address] [id number] [place] [address] 94196- [address] Oct, Post-traumatic stress disorder, chronic F43.12 and Bipolar disorder, unspecified F31.9 [facility] [address] [facility] [id number] [address] Oct, Bipolar II disorder F31.81 ; PTSD (post-traumatic stress disorder) F43.10 and Generalized anxiety disorder F41.1 [facility] [address] [facility] [id number] [address] Oct, Post-traumatic stress disorder, chronic F43.12 and Bipolar disorder, unspecified F31.9 [facility] [address] [facility] [id number] [place] [address] Dec, Acute left otitis media H66.92 IMMUNIZATIONS No Known Immunizations SOCIAL HISTORY Never Assessed REASON FOR VISIT intake PLAN OF CARE Activity Details Follow Up 1 Week, 1 hour Reason: VITAL SIGNS MEDICATIONS Unknown Medications RESULTS No Results PROCEDURES Procedure Date Ordered Result Body Site Psych diagnostic evaluation, established patient Nov 15, 2017 INSTRUCTIONS MEDICATIONS ADMINISTERED No Known Medications MEDICAL (GENERAL) HISTORY Type Description Date Medical History asthma Medical History PTSD
--- OUTSIDE RECORDS SUMMARY | 2018-05-21 10:45 | XMS REPORT ---
Author Author ZEFERINO BREAUX Organization [facility] Address [address] [place] [address] Care Team Providers Care Floor Associate Name Role Phone ZEFERINO BREAUX Unavailable PROBLEMS Type Condition ICD9-CM Code GWS98-[id number] Code Onset Dates Condition Status SNOMED Code Problem Bipolar II disorder F31.81 Active 87815222 Problem PTSD (post-traumatic stress disorder) F43.10 Active 82032348 Problem Bipolar disorder, unspecified F31.9 Active 52099133 Problem Post-traumatic stress disorder, chronic F43.12 Active 35126437 ALLERGIES No Information ENCOUNTERS Encounter Location Date Diagnosis [place] [address] [place] [address]3851- [address] February, [place] [id number] [place] [address] 91272- [address] Jan, Post-traumatic stress disorder, chronic F43.12 ; Bipolar disorder, unspecified F31.9 ; Bipolar II disorder F31.81 ; PTSD (post-traumatic stress disorder) F43.10 and BMI 40.0-44.9, adult Z68.41 [address], [place] [address] Dec, [address] [place] [address] 70579- 8341 Dec, Post-traumatic stress disorder, chronic F43.12 ; Bipolar disorder, unspecified F31.9 ; Bipolar II disorder F31.81 and PTSD (post- traumatic stress disorder) F43.10 [place] [address], [place] [address] Nov, [place] [address] [place] [id number] [place] [address] 22948- 4926 Oct, Post-traumatic stress disorder, chronic F43.12 and Bipolar disorder, unspecified F31.9 [facility] [address] [facility] [id number] [address] Oct, Bipolar II disorder F31.81 ; PTSD (post-traumatic stress disorder) F43.10 and Generalized anxiety disorder F41.1 [facility] [address] [facility] [id number], [place] [address] Oct, Post-traumatic stress disorder, chronic F43.12 and Bipolar disorder, unspecified F31.9 [facility] [address] [facility] [id number], [place] [address] Dec, Acute left otitis media H66.92 IMMUNIZATIONS No Known Immunizations SOCIAL HISTORY Never Assessed REASON FOR VISIT f/u PLAN OF CARE Activity Details Follow Up Next available Reason: VITAL SIGNS MEDICATIONS Unknown Medications RESULTS No Results PROCEDURES Procedure Date Ordered Result Body Site Psychotherapy, patient &/family, 45 minutes, established patient Nov 21, 2017 INSTRUCTIONS MEDICATIONS ADMINISTERED No Known Medications MEDICAL (GENERAL) HISTORY Type Description Date Medical History asthma Medical History PTSD
--- OUTSIDE RECORDS SUMMARY | 2018-05-21 10:45 | XMS REPORT ---
Author Author MERA JASSI [facility] Address [address] [place] [address] Care Team Providers Care Corporate Claims Examiner Name Role Phone MERAJASSI Unavailable PROBLEMS Type Condition ICD9-CM Code YKI12-BS Code Onset Dates Condition Status SNOMED Code Problem Bipolar II disorder F31.81 Active 90170867 Problem PTSD (post-traumatic stress disorder) F43.10 Active 72390528 Problem Bipolar disorder, unspecified F31.9 Active 54178691 Problem Post-traumatic stress disorder, chronic F43.12 Active 92356951 ALLERGIES No Known Allergies ENCOUNTERS Encounter Location Date Diagnosis [place] [address] [place] [id number] [place] [address] February, [place] [address] [place] [address] [id number] [place] [address] 22898- 7367 Jan, Post-traumatic stress disorder, chronic F43.12 ; Bipolar disorder, unspecified F31.9 ; Bipolar II disorder F31.81 ; PTSD (post-traumatic stress disorder) F43.10 and BMI 40.0-44.9, adult Z68.41 [place] [address], [place] [address] Dec, [place] [address] [place] [id number] [place] [address] 74460- 6604 Dec, Post-traumatic stress disorder, chronic F43.12 ; Bipolar disorder, unspecified F31.9 ; Bipolar II disorder F31.81 and PTSD (post- traumatic stress disorder) F43.10 [place] [address], [place] [address] Nov, [place] [address] [place] [id number] [place] [address] 50683- 1569 Oct, Post-traumatic stress disorder, chronic F43.12 and Bipolar disorder, unspecified F31.9 [facility] [address] [facility] [id number], [place] [address] Oct, Bipolar II disorder F31.81 ; PTSD (post-traumatic stress disorder) F43.10 and Generalized anxiety disorder F41.1 [facility] [address] [facility] [id number] [address] Oct, Post-traumatic stress disorder, chronic F43.12 and Bipolar disorder, unspecified F31.9 [facility] [address] [facility] [id number], [place] [address] Dec, Acute left otitis media H66.92 IMMUNIZATIONS No Known Immunizations SOCIAL HISTORY Never Assessed REASON FOR VISIT intake----LIAMennettRICHARD PLAN OF CARE Activity Details Follow Up 4 Weeks Reason: f/u VITAL SIGNS Height 62 in 2017-11-20 Weight 206 lbs 2017-11-20 Heart Rate 70 bpm 2017-11-20 Respiratory Rate 20 2017-11-20 BMI 37.67 kg/m2 2017-11-20 Blood pressure systolic 110 mmHg 2017-11-20 Blood pressure diastolic 80 mmHg 2017-11-20 MEDICATIONS Medication Instructions Dosage Frequency Start Date End Date Duration Status Prazosin HCl 1 MG Orally Once a day at bedtime 1 capsule Oct, 30 day(s) Active Paxil 40 mg Orally Once a day 1.5 tablets 24h Oct, 30 day(s) Active Lamictal 25 MG Orally Once a day for two weeks, then 2 tablets daily 1 tablet Oct, 30 day(s) Active RESULTS No Results PROCEDURES No Known procedures INSTRUCTIONS MEDICATIONS ADMINISTERED No Known Medications MEDICAL (GENERAL) HISTORY Type Description Date Medical History asthma Medical History PTSD
--- NOTE | 2018-05-21 11:41 | ED Lower Extremity ---
General Chief Complaint: Lower Extremity Stated Complaint: RT ANKLE SURGICAL SIGHT RED Nursing Triage Note: Pt reports redness, swelling, and increased pain to R lower extremity since Saturday 05/19. Pt had plates put in ankle in January by Dr. Leon. Nursing Sepsis Screen: Possible Sepsis Risk Source: patient Exam Limitations: no limitations History of Present Illness Date Seen by Provider: May 21, 2018 Time Seen by Provider: 11:40 Initial Comments to ER with redness swelling increased pain and drainage from the right ankle. the symptoms began on Monday 2 days ago. She had a closed trimalleolar ankle fracture in January of this year splinted discharged home and had orthopedic follow-up in the outpatient setting. Hardware was placed at about the beginning of February or end of January according to the patient. 2 days ago she developed these symptoms including some drainage from the inferior aspect of the incision over the medial malleolus. She does report systemic symptoms including chills nausea vomiting poor appetite lightheadedness and general malaise. on arrival to ER she is tachycardic at 115 and with a blood pressure of 100/52. She states that she has an appointment scheduled with Dr. Leon tomorrow but she called his office today and they advised her to come to the emergency room Onset: just prior to arrival Severity: moderate Pain/Injury Location: right ankle Method of Injury: fell Modifying Factors: Worse With Movement Allergies and Home Medications Allergies Coded Allergies: No Known Drug Allergies (Unverified , 07/25/17) Patient Home Medication List Home Medication List Reviewed: Yes Constitutional: see HPI, chills EENTM: see HPI Respiratory: no symptoms reported Cardiovascular: no symptoms reported Genitourinary: no symptoms reported Musculoskeletal: see HPI Skin: see HPI, dryness Psychiatric/Neurological: No Symptoms Reported Past Vysyevc-Lvbvbp-Hnaqos Hx Patient Social History Alcohol Beverage of Choice: Wine, Vodka Type Used: Cigarettes Former Smoker, Quit: Jan 22, 2016 Recent Foreign Travel: No Contact w/Someone Who Travel: No Recent Infectious Disease Expo: No Recent Hopitalizations: No Immunizations Up To Date Tetanus Booster (TDap): Less than 5yrs PED Vaccines UTD: Yes Date of Influenza Vaccine: Jul 12, 2017 Seasonal Allergies Seasonal Allergies: No Past Medical History Surgeries: Yes (dental) Tonsillectomy Respiratory: No Cardiac: No Neurological: No Female Reproductive Disorders: Denies Sexually Transmitted Disease: No HIV/AIDS: No Genitourinary: No Gastrointestinal: No Musculoskeletal: Yes Scoliosis Endocrine: No HEENT: No Cancer: No Psychosocial: Yes PTSD, Bipolar Integumentary: No Blood Disorders: No Adverse Reaction/Blood Tranf: No Family Medical History Patient reports no known family medical history. Physical Exam Vital Signs Vital Signs - First Documented 05/21/18 10:57 Temp 98.7 Pulse 98 Resp 18 B/P (MAP) 110/76 (87) Pulse Ox 100 O2 Delivery Room Air Capillary Refill : Less Than 3 Seconds Height, Weight, BMI Height: 5'2.00" Weight: 220lbs. 0.0oz. 99.834180bn; 38.0 BMI Method:Stated General Appearance: WD/WN, no apparent distress HEENT: PERRL/EOMI, normal ENT inspection Neck: non-tender, full range of motion Respiratory: no respiratory distress, no accessory muscle use Gastrointestinal: normal bowel sounds, non tender Hips: bilateral hip non-tender, bilateral hip normal inspection, bilateral hip normal range of motion Legs: bilateral leg non-tender, bilateral leg normal inspection, bilateral leg normal range of motion Knees: bilateral knee non-tender, bilateral knee normal inspection, bilateral knee normal range of motion Ankles: right ankle pain, right ankle soft tissue tenderness, right ankle swelling (there is erythema circumferentially about the right lower extremity that extends proximally to the mid lower leg. There is some ddried purulent material around the anterior aspect of incision over the medial malleolus with some drainage. Drainage appears serous. Culture was collected and sent to lab. She is tachycardic and hypotensive so we'll pursue a sepsis workup) Feet: right foot swelling, right foot other (sshe does have normal sensation of the toesnoted wiggle the toes and brisk capillary refill of all toes.) Neurologic/Psychiatric: alert, normal mood/affect, oriented x 3 Skin: normal color, warm/dry, other (erythema right lower extremity otherwise no rash or petechiae) Progress/Results/Core Measures Results/Orders Lab Results Laboratory Tests Test 05/21/18 11:38 Range/Units White Blood Count 14.1 H 4.3-11.0 10^3/uL Red Blood Count 4.82 4.35-5.85 10^6/uL Hemoglobin 13.3 11.5-16.0 G/DL Hematocrit 38 35-52 % Mean Corpuscular Volume 78 L 80-99 FL Mean Corpuscular Hemoglobin 28 25-34 PG Mean Corpuscular Hemoglobin Concent 35 32-36 G/DL Red Cell Distribution Width 14.0 10.0-14.5 % Platelet Count 301 130-400 10^3/uL Mean Platelet Volume 10.3 7.4-10.4 FL Neutrophils (%) (Auto) 77 H 42-75 % Lymphocytes (%) (Auto) 15 12-44 % Monocytes (%) (Auto) 8 0-12 % Eosinophils (%) (Auto) 0 0-10 % Basophils (%) (Auto) 0 0-10 % Neutrophils # (Auto) 10.9 H 1.8-7.8 X 10^3 Lymphocytes # (Auto) 2.1 1.0-4.0 X 10^3 Monocytes # (Auto) 1.1 H 0.0-1.0 X 10^3 Eosinophils # (Auto) 0.0 0.0-0.3 10^3/uL Basophils # (Auto) 0.0 0.0-0.1 10^3/uL Neutrophils % (Manual) 73 % Lymphocytes % (Manual) 20 % Monocytes % (Manual) 6 % Eosinophils % (Manual) 1 % Blood Morphology Comment NORMAL Erythrocyte Sedimentation Rate 66 H 0-20 MM/HR Prothrombin Time 14.5 12.2-14.7 SEC INR Comment 1.1 0.8-1.4 Activated Partial Thromboplast Time 35 24-35 SEC Sodium Level 134 L 135-145 MMOL/L Potassium Level 3.2 L 3.6-5.0 MMOL/L Chloride Level 101 98-107 MMOL/L Carbon Dioxide Level 18 L 21-32 MMOL/L Anion Gap 15 H 5-14 MMOL/L Blood Urea Nitrogen 12 7-18 MG/DL Creatinine 0.93 0.60-1.30 MG/DL Estimat Glomerular Filtration Rate > 60 BUN/Creatinine Ratio 13 Glucose Level 96 70-105 MG/DL Lactic Acid Level 2.10 *H 0.50-2.00 MMOL/L Calcium Level 10.0 8.5-10.1 MG/DL Total Bilirubin 0.8 0.1-1.0 MG/DL Aspartate Amino Transf (AST/SGOT) 21 5-34 U/L Alanine Aminotransferase (ALT/SGPT) 16 0-55 U/L Alkaline Phosphatase 151 H 40-136 U/L C-Reactive Protein High Sensitivity 34.85 H 0.00-0.50 MG/DL Total Protein 8.3 H 6.4-8.2 GM/DL Albumin 4.1 3.2-4.5 GM/DL Serum Test, Qualitative NEGATIVE NEGATIVE My Orders Orders - ELVA JOINER APRN Cbc With Automated Diff (05/21/18 11:07) Erythrocyte Sedimentation Rate (05/21/18 11:07) Hs C Reactive Protein (05/21/18 11:07) Ankle, Right, 3 Views (05/21/18 11:07) Hcg,Qualitative Serum (05/21/18 11:07) Protime With Inr (05/21/18 11:38) Partial Thromboplastin Time (05/21/18 11:38) Ns Iv 1000 Ml (Sodium Chloride 0.9%) (05/21/18 11:45) Blood Culture (05/21/18 11:38) Lactic Acid Analyzer (05/21/18 11:38) Wound Culture (05/21/18 11:41) Fentanyl Injection (Sublimaze Injection (05/21/18 11:45) Ketorolac Injection (Toradol Injection) (05/21/18 11:45) Us Venous Lower Ext Coral (05/21/18 11:38) Manual Differential (05/21/18 11:38) Cefepime Injection (Maxipime Injection) (05/21/18 12:30) Comprehensive Metabolic Panel (05/21/18 12:39) Medications Given in ED Current Medications Medications Dose Ordered Sig/Josselyn Route Start Time Stop Time Status Last Admin Dose Admin Cefepime HCl 2000 mg/Sodium Chloride 50 ml @ 100 mls/hr ONCE ONCE IV 05/21/18 12:30 05/21/18 12:59 DC 05/21/18 13:12 100 MLS/HR Fentanyl Citrate 50 mcg ONCE ONCE IVP 05/21/18 11:45 05/21/18 11:46 DC 05/21/18 11:51 50 MCG Ketorolac Tromethamine 15 mg ONCE ONCE IVP 05/21/18 11:45 05/21/18 11:46 DC 05/21/18 11:51 15 MG Vital Signs/I&O 05/21/18 10:57 Temp 98.7 Pulse 98 Resp 18 B/P (MAP) 110/76 (87) Pulse Ox 100 O2 Delivery Room Air Blood Pressure Mean: 87 Diagnostic Imaging Diagonstic Imaging: Xray Comments NAME: MEEK DUEÑAS MED REC#: [id number] PT STATUS: REG ER : 1990 PHYSICIAN: ELVA JOINER APRN ADMIT DATE: 05/21/18/ER Draft Date of Exam:05/21/18 ANKLE, RIGHT, 3 VIEWS INDICATION: Recent right ankle surgery. Now with redness, swelling, and pain in the right ankle. COMPARISON: 02/22/2018 FINDINGS: 3 radiographic views of the right ankle were obtained. Since previous exam, patient is now status post ORIF of the distal tibia and fibula. Orthopedic sideplate and screws are noted involving the posterior margins of both the distal tibia and fibula. Medial malleolus screw is also noted. As a result, there is significant improved anatomic alignment of the fracture fragments. Transverse oriented fracture through the base of the medial malleolus remains conspicuous. No new acute fracture or dislocation is identified. No unexpected radiopaque foreign bodies are seen. There is significant generalized soft tissue edema of the right ankle. IMPRESSION: 1. Significant generalized soft tissue edema of the right ankle. Findings can be seen with underlying cellulitis. No lytic or blastic bony lesion is seen, but osteomyelitis cannot be excluded based on radiographs alone. Correlation with MRI is recommended. 2. Postsurgical changes with partial interval healing of previously described right ankle fractures. Dictated on workstation # [id number] Dict: 05/21/18 1226 Trans: 05/21/18 1232 [id number] Interpreted by: CATHERINE CHOE MD Electronically signed by: NAME: MEEK DUEÑAS MED REC#: [id number] PT STATUS: ADM IN : 1990 PHYSICIAN: ELVA JOINER APRN ADMIT DATE: 05/21/18/4TH Draft Date of Exam:05/21/18 US VENOUS LOWER EXT CORAL PROCEDURE: US Venous Lower Ext Coral. TECHNIQUE: Multiple real-time grayscale images were obtained over the lower extremities in various projections, bilaterally. Additional duplex Doppler and color Doppler images were also obtained. INDICATION: Left ankle and foot redness. FINDINGS: There is no evidence of right or left lower extremity DVT. Both lower extremity deep venous systems demonstrate normal compressibility with normal response to augmentation and Valsalva. No fluid collection or mass is seen. IMPRESSION: No evidence of right or left lower extremity DVT. Dictated on workstation # [id number] Dict: 05/21/18 1301 Trans: 05/21/18 1305 [facility] [id number] Interpreted by: PERFECTO ECHEVERRIA MD Electronically signed by: Departure Communication (Admissions) Time/Spoke to Admitting Phy: 12:[address] Dutta. We will admit the patient cefepime and vancomycin empirically pending cultures. Consult to Dr. Leon from orthopedics. Time/Spoke to Consulting Phy: 12:[address] Leon to him of consult as he was operating at the time I tried to contact him. Impression Primary Impression: Sepsis Additional Impression: Surgical site infection Disposition: ADMITTED INPATIENT Condition: Stable Admissions Decision to Admit Reason: Admit from ER (General) Decision to Admit/Date: May 21, 2018 Time/Decision to Admit Time: 11:47 Departure-Patient Inst. Referrals: NO,LOCAL PHYSICIAN (PCP/Family) Primary Care Physician ELVA JOINER APRN May 21, 2018 11:41
[2018-05-21] MEDS ORDERED: fentaNYL INJECTION 100 MCG/2 ML AMP IVP ONE (11:45)
[2018-05-21] MEDS ORDERED: NS IV 1000 ML 1,000 ML IV SCH (11:45)
[2018-05-21] MEDS ORDERED: KETOROLAC 30 MG/ML VIAL IVP ONE (11:45)
[2018-05-21 11:49] LABS: BASOPHILS % (AUTO) 0 % (0-10); EOSINOPHILS % (AUTO) 0 % (0-10); HEMATOCRIT 38 % (35-52); HEMOGLOBIN 13.3 G/DL (11.5-16.0); LYMPHOCYTES # (AUTO) 2.1 X 10^3 (1.0-4.0); LYMPHOCYTES % (AUTO) 15 % (12-44); MEAN CORPUSCULAR HEMOGLOBIN 28 PG (25-34); MEAN CORPUSCULAR HGB CONC 35 G/DL (32-36); MEAN CORPUSCULAR VOLUME 78 FL (80-99); MEAN PLATELET VOLUME 10.3 FL (7.4-10.4); MONOCYTES # (AUTO) 1.1 X 10^3 (0.0-1.0); MONOCYTES % (AUTO) 8 % (0-12); NEUTROPHILS # (AUTO) 10.9 X 10^3 (1.8-7.8); NEUTROPHILS % (AUTO) 77 % (42-75); PLATELET COUNT 301 10^3/uL (130-400); RED BLOOD COUNT 4.82 10^6/uL (4.35-5.85); WHITE BLOOD COUNT 14.1 10^3/uL (4.3-11.0)
[2018-05-21 12:06] LABS: INR 1.1 (0.8-1.4); PROTHROMBIN TIME PATIENT 14.5 SEC (12.2-14.7)
[2018-05-21 12:18] LABS: ERYTHROCYTE SEDIMENTATION RATE 66 MM/HR (0-20)
[2018-05-21 12:19] LABS: EOSINOPHILS % (MANUAL) 1 %; LYMPHOCYTES % (MANUAL) 20 %; MONOCYTES % (MANUAL) 6 %; NEUTROPHILS % (MANUAL) 73 %; RBC MORPH NORMAL
[2018-05-21] MEDS ORDERED: CEFEPIME INJECTION 2,000 MG in NS (IVPB) 50 ML IV ONE (12:30)
--- NOTE | 2018-05-21 12:33 | Diagnostic Imaging Report ---
INDICATION: Recent right ankle surgery. Now with redness, swelling, and pain in the right ankle. COMPARISON: 02/22/2018 FINDINGS: 3 radiographic views of the right ankle were obtained. Since previous exam, patient is now status post ORIF of the distal tibia and fibula. Orthopedic sideplate and screws are noted involving the posterior margins of both the distal tibia and fibula. Medial malleolus screw is also noted. As a result, there is significant improved anatomic alignment of the fracture fragments. Transverse oriented fracture through the base of the medial malleolus remains conspicuous. No new acute fracture or dislocation is identified. No unexpected radiopaque foreign bodies are seen. There is significant generalized soft tissue edema of the right ankle. IMPRESSION: 1. Significant generalized soft tissue edema of the right ankle. Findings can be seen with underlying cellulitis. No lytic or blastic bony lesion is seen, but osteomyelitis cannot be excluded based on radiographs alone. Correlation with MRI is recommended. 2. Postsurgical changes with partial interval healing of previously described right ankle fractures. Dictated by: Dictated on workstation # [id number]
[2018-05-21 13:00] LABS: ALANINE AMINOTRANSFERASE 16 U/L (0-55); ALBUMIN 4.1 GM/DL (3.2-4.5); ALKALINE PHOSPHATASE 151 U/L (40-136); BILIRUBIN,TOTAL 0.8 MG/DL (0.1-1.0); BUN/CREATININE RATIO 13; CARBON DIOXIDE 18 MMOL/L (21-32); CHLORIDE 101 MMOL/L (98-107); CREATININE SERUM 0.93 MG/DL (0.60-1.30); GFR ESTIMATED > 60; GLUCOSE 96 MG/DL (70-105); POTASSIUM 3.2 MMOL/L (3.6-5.0); SODIUM 134 MMOL/L (135-145); TOTAL PROTEIN 8.3 GM/DL (6.4-8.2)
--- NOTE | 2018-05-21 13:05 | Diagnostic Imaging Report ---
PROCEDURE: US Venous Lower Ext Elier. TECHNIQUE: Multiple real-time grayscale images were obtained over the lower extremities in various projections, bilaterally. Additional duplex Doppler and color Doppler images were also obtained. INDICATION: Left ankle and foot redness. FINDINGS: There is no evidence of right or left lower extremity DVT. Both lower extremity deep venous systems demonstrate normal compressibility with normal response to augmentation and Valsalva. No fluid collection or mass is seen. IMPRESSION: No evidence of right or left lower extremity DVT. Dictated by: Dictated on workstation # [id number]
[2018-05-21 13:50] VITALS: BP 108/59
[2018-05-21] MEDS ORDERED: VANCOMYCIN 1,750 MG/NS 500 ML IVPB IV NR ×2 (14:00)
[2018-05-21] MEDS ORDERED: CATHETER FLUSH 10 ML SYR IV PRN (14:15)
[2018-05-21] MEDS ORDERED: ONDANSETRON 4 MG/2 ML (SDV) Z0FRAN IV PRN (14:15)
[2018-05-21] MEDS ORDERED: ACET-2267 PO (14:33)
[2018-05-21] MEDS: NS IV 1000 ML 1,000 ML IV SCH ×2 (14:59→22:27)
[2018-05-21 15:58] VITALS: BP 110/62
[2018-05-21] MEDS: HYDROcodone/APAP 5 MG/325 MG (LORTAB) TAB PO PRN ×2 (17:35→23:38)
--- NOTE | 2018-05-21 18:13 | Consultation ---
History of Present Illness History of Present Illness Patient Consulted On(jessie/time) 05/21/18 18:07 Date Seen by Provider: May 21, 2018 Time Seen by Provider: 16:45 Reason for Visit: Orthopedic consultation History of Present Illness Teresa is a 27 year old female with acute onset of right ankle cellulitis Reported acute onset of fever, chills, and nausea on Monday morning, later than day acute redness to the ankle region, She also noted some scant serous drainage from her medial incision, redness to the ankle, around the wound is not any more red than the sock pattern of the ankle. Indicated has been walking fine, no drainage, overall was doing well. Allergies and Home Medications Allergies Coded Allergies: No Known Drug Allergies (Unverified , 05/21/18) Home Medications Acetaminophen 500 Mg Tablet, 1,000 MG PO Q6H PRN for PAIN-MILD, (Reported) Patient Home Medication List Home Medication List Reviewed: Yes Past Jgqeguc-Jmrlcr-Sunwai Hx Patient Social History Alcohol Use: Denies Use Number of Drinks Today: FF Alcohol Beverage of Choice: Wine, Vodka Recreational Drug Use: No Smoking Status: Current Everyday Smoker Type Used: Cigarettes Former Smoker, Quit: Jan 22, 2016 2nd Hand Smoke Exposure: No Recent Foreign Travel: No Contact w/Someone Who Travel: No Recent Infectious Disease Expo: No Recent Hopitalizations: No Immunizations Up To Date Tetanus Booster (TDap): Less than 5yrs PED Vaccines UTD: Yes Date of Influenza Vaccine: Jul 12, 2017 Seasonal Allergies Seasonal Allergies: No Past Medical History Surgeries: Yes (dental, 2 plates/9 screws Right ankle) Orthopedic, Tonsillectomy Respiratory: No Cardiac: No Neurological: No Female Reproductive Disorders: Denies Sexually Transmitted Disease: No HIV/AIDS: No Genitourinary: No Gastrointestinal: No Musculoskeletal: Yes Scoliosis, Fractures Endocrine: No HEENT: No Cancer: No Psychosocial: Yes (Borderline Personality) PTSD, Bipolar Integumentary: No Blood Disorders: No Adverse Reaction/Blood Tranf: No Family Medical History Patient reports no known family medical history. Review of Systems-General Constitutional: fever, malaise Respiratory: no symptoms reported Gastrointestinal: nausea Genitourinary: no symptoms reported Musculoskeletal: joint swelling (ankle redness and swelling), muscle pain Skin: see HPI Psychiatric/Neurological: No Symptoms Reported Physical Exam-General Problems Physical Exam Vital Signs Vital Signs - First Documented 05/21/18 10:57 Temp 98.7 Pulse 98 Resp 18 B/P (MAP) 110/76 (87) Pulse Ox 100 O2 Delivery Room Air Capillary Refill : Less Than 3 SecondsLess Than 3 Seconds General Appearance: WD/WN, no apparent distress Eyes: Bilateral Eye Normal Inspection, Bilateral Eye PERRL HEENT: pharynx normal Neck: non-tender, full range of motion, supple Respiratory: chest non-tender, lungs clear, normal breath sounds, no respiratory distress, no accessory muscle use Cardiovascular: regular rate, rhythm Gastrointestinal: normal bowel sounds Rectal: deferred Back: normal inspection, no CVA tenderness Extremities: inflammation (swelling, heat, and redness of ankle in sock pattern , wound with scant serous drainage note.), swelling Skin: warm/dry Lymphatic: no adenopathy Assessment/Plan Assessment/Plan Admission Diagnosis/Plan Plan: would agree with antibiotics, pain control, xray would attempt this first, if failed then consider hardware removal. Would do both IV, then oral ABX Reason for Inpatient Admission: Cellulitis of ankle Clinical Quality Measures DVT/VTE Risk/Contraindication: Risk Factor Score Per Nursin RFS Level Per Nursing on Admit: 4+=Very High TERESA BRITTON May 21, 2018 18:13
[2018-05-21 19:22] VITALS: BP 112/66
[2018-05-21] MEDS: CEFEPIME 2 GM/NS 50 ML IVPB IV SCH ×2 (20:15)
[2018-05-21] MEDS: ACETAMINOPHEN 325 MG TABLET PO PRN (20:16)
[2018-05-22 00:23] VITALS: BP 114/60
[2018-05-22] MEDS: VANCOMYCIN 1250 MG/NS 250 ML IVPB IV SCH ×4 (01:26→14:16)
[2018-05-22 04:03] VITALS: BP 101/68
[2018-05-22] MEDS: NS IV 1000 ML 1,000 ML IV SCH ×3 (04:14→18:46)
[2018-05-22] MEDS: ACETAMINOPHEN 325 MG TABLET PO PRN ×2 (04:14→08:30)
[2018-05-22 05:35] LABS: BASOPHILS % (AUTO) 0 % (0-10); EOSINOPHILS # (AUTO) 0.2 10^3/uL (0.0-0.3); EOSINOPHILS % (AUTO) 2 % (0-10); HEMATOCRIT 30 % (35-52); HEMOGLOBIN 10.3 G/DL (11.5-16.0); LYMPHOCYTES # (AUTO) 1.5 X 10^3 (1.0-4.0); LYMPHOCYTES % (AUTO) 19 % (12-44); MEAN CORPUSCULAR HEMOGLOBIN 27 PG (25-34); MEAN CORPUSCULAR HGB CONC 34 G/DL (32-36); MEAN CORPUSCULAR VOLUME 79 FL (80-99); MONOCYTES # (AUTO) 0.6 X 10^3 (0.0-1.0); MONOCYTES % (AUTO) 8 % (0-12); NEUTROPHILS # (AUTO) 5.8 X 10^3 (1.8-7.8); NEUTROPHILS % (AUTO) 71 % (42-75); PLATELET COUNT 226 10^3/uL (130-400); RED BLOOD COUNT 3.82 10^6/uL (4.35-5.85); WHITE BLOOD COUNT 8.2 10^3/uL (4.3-11.0)
[2018-05-22] MEDS: CEFEPIME 2 GM/NS 50 ML IVPB IV SCH ×4 (08:22→20:47)
[2018-05-22 08:25] VITALS: BP 108/54
[2018-05-22] MEDS: HYDROcodone/APAP 5 MG/325 MG (LORTAB) TAB PO PRN ×2 (11:01→19:58)
[2018-05-22 11:45] VITALS: BP 107/55
[2018-05-22] MEDS ORDERED: TROUGH ORDER-PHARMACY XX NR (13:00)
--- NOTE | 2018-05-22 13:37 | Progress Note-Hospitalist ---
Subjective HPI/CC On Admission Date Seen by Provider: May 22, 2018 Time Seen by Provider: 13:29 The patient is a 27-year-old white female who presented to the emergency room yesterday with complaints of fever and pain in her right ankle. On February 27 she was in the emergency room having fallen off her porch at home and suffered a trimalleolar fracture of the right ankle. She was reduced and placed in a immobilizer. She was then seen by Dr. Leon at [address] [place] [address] orthopedics in [place]. This was surgically repaired in the week following the injury. She reports that over about the last week she had been having increasing pain in the ankle. She stated that she had had a bit of clear drainage in the ankle incision since about week for postoperatively. The drainage had stopped just prior to the pain redness and fever. Workup in the emergency room found that she had erythema to the low level of a crew sock plus warmth and swelling. There was an open area in the incision line at about the midpoint which was cultured. Her temperature was 102.7 at max. The white count was 14,100. The preliminary culture report shows staph and beta hemolytic strep. Focused Exam Lactate Level Objective Exam Vital Signs Capillary Refill : Less Than 3 SecondsLess Than 3 Seconds HEENT: Normal ENT Inspection Neck: Full Range of Motion, Normal Inspection, Non Tender, Supple, Carotid Bruit Respiratory: Chest Non Tender, Lungs Clear, Normal Breath Sounds, No Accessory Muscle Use, No Respiratory Distress Cardiovascular: Regular Rate, Rhythm, No Edema, No Gallop, No JVD, No Murmur, Normal Peripheral Pulses Comments There was erythema on the right ankle to about the level of a crew sock at the right ankle. There was slight warmth. There was a recent medial vertically oriented incision. There was an open area at the midpoint which was leaking a small amount of serum. Results/Procedures Lab Patient resulted labs reviewed. Assessment/Plan Assessment and Plan Assess & Plan/Chief Complaint Impression: Recent trimalleolar ankle fracture with operative repair. 2.cellulitis in the area of operative site. 3.consider the possibility of osteomyelitis Plan: IV antibiotics Clinical Quality Measures DVT/VTE Risk/Contraindication: Risk Factor Score Per Nursin RFS Level Per Nursing on Admit: 4+=Very High RAGINI MELTON MD May 22, 2018 13:36
--- NOTE | 2018-05-22 13:43 | History & Physicial ---
HPI History of Present Illness: HPI/Chief Complaint The patient is a 27-year-old white female who presented to the emergency room yesterday with complaints of fever and pain in her right ankle. On February 27 she was in the emergency room having fallen off her porch at home and suffered a trimalleolar fracture of the right ankle. She was reduced and placed in a immobilizer. She was then seen by Dr. Leon at [address] [place] [address] orthopedics in [place]. This was surgically repaired in the week following the injury. She reports that over about the last week she had been having increasing pain in the ankle. She stated that she had had a bit of clear drainage in the ankle incision since about week for postoperatively. The drainage had stopped just prior to the pain redness and fever. Workup in the emergency room found that she had erythema to the low level of a crew sock plus warmth and swelling. There was an open area in the incision line at about the midpoint which was cultured. Her temperature was 102.7 at max. The white count was 14,100. The preliminary culture report shows staph and beta hemolytic strep. Source: patient Exam Limitations: no limitations Date Seen 05/22/18 Time Seen by Provider: 13:38 Attending Physician Michael Melton MD PCP No,Local Physician Referring Physician Date of Admission May 21, 2018 at 12:46 Home Medications & Allergies Home Medications Reviewed patient Home Medication Reconciliation performed by pharmacy medication reconciliations electronic security technician and/or nursing. Patients Allergies have been reviewed. Allergies Allergies Coded Allergies No Known Drug Allergies (Unverified05/21/18) Past Vphjifv-Fxprln-Vwjgom Hx Patient Social History Alcohol Use: Denies Use Number of Drinks Today: FF Alcohol Beverage of Choice: Wine, Vodka Recreational Drug Use: No Smoking Status: Current Everyday Smoker Former Smoker, Quit: Jan 22, 2016 Type Used: Cigarettes 2nd Hand Smoke Exposure: No Physical Abuse Screen: No Sexual Abuse: No Recent Foreign Travel: No Contact w/other who traveled: No Recent Hopitalizations: No Recent Infectious Disease Expo: No Immunizations Up To Date Tetanus Booster (TDap): Less than 5yrs Pediatric: Yes Date of Influenza Vaccine: Jul 12, 2017 Seasonal Allergies Seasonal Allergies: No Surgeries Yes (dental, 2 plates/9 screws Right ankle) Orthopedic, Tonsillectomy Respiratory No Cardiovascular No Neurological No Reproductive System Sexually Transmitted Disease: No HIV/AIDS: No Female Reproductive Disorders: Denies Genitourinary No Gastrointestinal No Musculoskeletal Yes Scoliosis, Fractures Endocrine History of Endocrine Disorders: No HEENT History of HEENT Disorders: No Cancer No Psychosocial History of Psychiatric Problem: Yes (Borderline Personality) Behavioral Health Disorders: PTSD, Bipolar Integumentary History of Skin or Integumenta: No Blood Transfusions History of Blood Disorders: No Adverse Reaction to a Blood Tr: No Family Medical History Family Hx: Patient reports no known family medical history. Review of Systems Constitutional: see HPI EENTM: no symptoms reported Respiratory: no symptoms reported Cardiovascular: no symptoms reported Gastrointestinal: no symptoms reported Genitourinary: no symptoms reported Musculoskeletal: see HPI Skin: no symptoms reported Psychiatric/Neurological: No Symptoms Reported Physical Exam Physical Exam Vital Signs Vital Signs - First Documented 05/21/18 10:57 Temp 98.7 Pulse 98 Resp 18 B/P (MAP) 110/76 (87) Pulse Ox 100 O2 Delivery Room Air Capillary Refill : Less Than 3 SecondsLess Than 3 Seconds Height, Weight, BMI Height: 5'2.00" Weight: 110lbs. 0.0oz. 49.329589ho; 40.2 BMI Method:Stated General Appearance: No Apparent Distress, WD/WN Eyes: Bilateral Eye Normal Inspection HEENT: Normal ENT Inspection Neck: Full Range of Motion, Normal Inspection, Non Tender, Supple, Carotid Bruit Respiratory: Chest Non Tender, Lungs Clear, Normal Breath Sounds, No Accessory Muscle Use, No Respiratory Distress Cardiovascular: Regular Rate, Rhythm, No Edema, No Gallop, No JVD, No Murmur, Normal Peripheral Pulses Gastrointestinal: Normal Bowel Sounds Neurologic/Psychiatric: Alert, Oriented x3, No Motor/Sensory Deficits Comments There was erythema to the height of a crew sock on the right foot and ankle. There was minimal heat to touch. There was an small eschar at the mid incision on the medial aspect of the ankle. Assessment/Plan Admission Diagnosis Cellulitis/osteomyelitis right ankle. 2.previous trimalleolar fracture with operative repair Admission Status: Inpatient Order (span 2 midnights) Reason for Inpatient Admission: osteomyelitis Clinical Quality Measures DVT/VTE Risk/Contraindication: Risk Factor Score Per Nursin RFS Level Per Nursing on Admit: 4+=Very High MICHAEL MELTON MD May 22, 2018 13:43
[2018-05-22] MEDS ORDERED: VANCOMYCIN 500 MG/D5W 100 ML IV NR ×2 (15:21)
[2018-05-22 15:45] VITALS: BP 114/56
--- NOTE | 2018-05-22 18:01 | Progress Note-Standard ---
Standard Progress Note Progress Notes/Assess & Plan Date Seen by Provider: May 22, 2018 Time Seen by Provider: 17:56 Progress/Assessment & Plan Pt DOLORES, s/p ORIF Right ankle fracture, about 3 months post op. RLE: moderate circumferential cellulitis lower leg, mild dehiscence/scab formation medial wound, no current drainage; all compartments soft, no increased pain with ROM of the ankle, foot well perfused, posterolateral incision well healed without gross signs of infection. Wound CXs obtained in the ED +Strep/Staph species; cultures obtained in this way are frequently unreliable. Current plain radiographs of the Right ankle demonstrate soft tissue edema, otherwise stable. Will obtain a MRI of the Right ankle to access for possible deep infection. Further recommendations pending the results of the MRI. Continue IV antibiotics as currently prescribed. Patient can mobilize OOB with PT/OT as able, WBAT RLE Focused Exam Lactate Level 05/21/18 11:38: Lactic Acid Level 2.10*H 05/21/18 13:22: Lactic Acid Level 0.97 INES BAER DO May 22, 2018 18:01
[2018-05-22 20:30] VITALS: BP 106/58
[2018-05-23] VITALS: BP 106/53
[2018-05-23] MEDS: HYDROcodone/APAP 5 MG/325 MG (LORTAB) TAB PO PRN ×3 (01:05→18:03)
[2018-05-23] MEDS ORDERED: VANCOMYCIN 1,750 MG/NS 500 ML IVPB IV SCH ×2 (03:00)
[2018-05-23 04:08] VITALS: BP 95/51
[2018-05-23] MEDS: NS IV 1000 ML 1,000 ML IV SCH (06:04)
[2018-05-23 08:00] VITALS: BP 106/50
[2018-05-23] MEDS: CEFEPIME 2 GM/NS 50 ML IVPB IV SCH ×2 (08:08)
[2018-05-23] MEDS ORDERED: cefTRIAXone INJECTION 1,000 MG in NS (IVPB) 50 ML IV SCH (09:00)
[2018-05-23 09:37] LABS: BASOPHILS % (AUTO) 0 % (0-10); EOSINOPHILS # (AUTO) 0.2 10^3/uL (0.0-0.3); EOSINOPHILS % (AUTO) 3 % (0-10); HEMATOCRIT 31 % (35-52); HEMOGLOBIN 10.7 G/DL (11.5-16.0); LYMPHOCYTES # (AUTO) 1.5 X 10^3 (1.0-4.0); LYMPHOCYTES % (AUTO) 20 % (12-44); MEAN CORPUSCULAR HEMOGLOBIN 27 PG (25-34); MEAN CORPUSCULAR HGB CONC 34 G/DL (32-36); MEAN CORPUSCULAR VOLUME 80 FL (80-99); MEAN PLATELET VOLUME 9.6 FL (7.4-10.4); MONOCYTES # (AUTO) 0.6 X 10^3 (0.0-1.0); MONOCYTES % (AUTO) 9 % (0-12); NEUTROPHILS % (AUTO) 68 % (42-75); PLATELET COUNT 260 10^3/uL (130-400); RED BLOOD COUNT 3.91 10^6/uL (4.35-5.85); RED CELL DISTRIBUTION WIDTH 13.8 % (10.0-14.5); WHITE BLOOD COUNT 7.4 10^3/uL (4.3-11.0)
[2018-05-23 10:00] LABS: ALANINE AMINOTRANSFERASE 31 U/L (0-55); ALBUMIN 3.4 GM/DL (3.2-4.5); ALKALINE PHOSPHATASE 158 U/L (40-136); BILIRUBIN,TOTAL 0.5 MG/DL (0.1-1.0); BUN/CREATININE RATIO 8; CALCIUM 9.2 MG/DL (8.5-10.1); CARBON DIOXIDE 22 MMOL/L (21-32); CHLORIDE 106 MMOL/L (98-107); CREATININE SERUM 0.61 MG/DL (0.60-1.30); GFR ESTIMATED > 60; GLUCOSE 96 MG/DL (70-105); SODIUM 137 MMOL/L (135-145)
--- NOTE | 2018-05-23 10:32 | Progress Note-Hospitalist ---
Subjective HPI/CC On Admission Date Seen by Provider: May 23, 2018 Time Seen by Provider: 10:00 The patient is a 27-year-old white female who presented to the emergency room yesterday with complaints of fever and pain in her right ankle. On February 27 she was in the emergency room having fallen off her porch at home and suffered a trimalleolar fracture of the right ankle. She was reduced and placed in a immobilizer. She was then seen by Dr. Leon at [address] [place] [address] orthopedics in [place]. This was surgically repaired in the week following the injury. She reports that over about the last week she had been having increasing pain in the ankle. She stated that she had had a bit of clear drainage in the ankle incision since about week for postoperatively. The drainage had stopped just prior to the pain redness and fever. Workup in the emergency room found that she had erythema to the low level of a crew sock plus warmth and swelling. There was an open area in the incision line at about the midpoint which was cultured. Her temperature was 102.7 at max. The white count was 14,100. The preliminary culture report shows staph and beta hemolytic strep. Subjective/Events-last exam Patient doing well MRI scheduled for 200pm Wants her 4 children to visit today Breast feeding Right ankle improved edema and redness Rocephin started and DC Cefepime and Vanc Dr Leon seeing patient in consultation Review of Systems Musculoskeletal: leg pain Focused Exam Lactate Level 05/21/18 11:38: Lactic Acid Level 2.10*H 05/21/18 13:22: Lactic Acid Level 0.97 Objective Exam Vital Signs Vital Signs Date Time Temp Pulse Resp B/P (MAP) Pulse Ox O2 Delivery O2 Flow Rate FiO2 05/23/18 16:08 99.1 91 16 117/68 (84) 100 Room Air Capillary Refill : Less Than 3 SecondsLess Than 3 Seconds General Appearance: No Apparent Distress, WD/WN, Chronically ill, Obese Respiratory: Lungs Clear, Normal Breath Sounds Cardiovascular: No Edema Extremity: Other (edema and pain ankle right) Neurologic/Psychiatric: Alert, Oriented x3, No Motor/Sensory Deficits, Normal Mood/Affect Results/Procedures Lab Laboratory Tests 05/23/18 09:31 Patient resulted labs reviewed. Assessment/Plan Assessment and Plan Assess & Plan/Chief Complaint Right ankle cellulitis and possible septic hardware Breast feeding status Check MRI Dr Leon consultation is appreciated Rocephin IV abx Pain control Diagnosis/Problems Diagnosis/Problems (1) Ankle pain, right Status: Acute Qualifiers: Chronicity: acute Qualified Codes: M25.571 - Pain in right ankle and joints of right foot (2) Breast feeding status of mother Status: Acute (3) Sepsis Status: Resolved Qualifiers: Sepsis type: sepsis due to unspecified organism Qualified Codes: A41.9 - Sepsis, unspecified organism (4) Surgical site infection Status: Acute Qualifiers: Encounter type: subsequent encounter Qualified Codes: T81.4XXD - Infection following a procedure, subsequent encounter Clinical Quality Measures DVT/VTE Risk/Contraindication: Risk Factor Score Per Nursin RFS Level Per Nursing on Admit: 4+=Very High MERRY FRANCISCO DO May 23, 2018 10:32
[2018-05-23] MEDS: KCL 10 MEQ TAB (MICRO K) PO SCH ×2 (10:45→18:01)
[2018-05-23 12:00] VITALS: BP 113/55
[2018-05-23] MEDS ORDERED: TROUGH ORDER-PHARMACY XX NR (14:00)
[2018-05-23] MEDS ORDERED: GADOBUTROL 10 MMOL/10 ML (GADAVIST) VIAL IV ONE (15:30)
[2018-05-23 16:08] VITALS: BP 117/68
--- NOTE | 2018-05-23 16:16 | Diagnostic Imaging Report ---
PROCEDURE: MRI right joint lower extremity with and without contrast. TECHNIQUE: Multiplanar, multisequence pre and post contrast-enhanced MIKI of the right joint lower extremity was accomplished. INDICATION: Redness and swelling involving the medial aspect of the ankle. COMPARISON: Ankle radiographs from 05/21/2018. FINDINGS: BONES: There is extensive metallic artifact involving the distal tibia and fibula from numerous fixation plates and screws. The artifact from the medial malleolar screw obscures visualization of the medial malleolus which lies deep to the area of clinical concern. Therefore, assessment for osteomyelitis in the medial malleolus is not possible on this examination. Visualized aspects of the hindfoot and midfoot have normal osseous structures and are without osteomyelitis. SOFT TISSUES: Signal artifact from the extensive metallic hardware does limit assessment of the immediately surrounding soft tissues. Allowing for this, there are subcutaneous T2 hyperintense reticulations and swelling involving the medial and anterior aspect of the ankle. No imaging features to indicate tenosynovitis of the medial flexor tendons. Mild tenosynovitis of the peroneal tendons is present. IMPRESSION: 1. Assessment for osteomyelitis within the distal tibia or fibula is not possible due to extensive artifact from large volume of orthopedic hardware present. No osteomyelitis within the hindfoot. 2. Subcutaneous edema and swelling in the medial and anterior aspect of the ankle and distal lower leg could be due to bland edema or cellulitis depending on clinical presentation. 3. No loculated fluid collection to indicate drainable abscess. Dictated by: Dictated on workstation # [id number]
[2018-05-23 23:54] VITALS: BP 112/62
[2018-05-24] MEDS: KCL 10 MEQ TAB (MICRO K) PO SCH ×2 (05:38→11:49)
[2018-05-24] MEDS: HYDROcodone/APAP 5 MG/325 MG (LORTAB) TAB PO PRN ×2 (05:38→13:10)
[2018-05-24 06:02] LABS: BASOPHILS % (AUTO) 0 % (0-10); EOSINOPHILS # (AUTO) 0.3 10^3/uL (0.0-0.3); EOSINOPHILS % (AUTO) 4 % (0-10); HEMATOCRIT 31 % (35-52); HEMOGLOBIN 10.3 G/DL (11.5-16.0); LYMPHOCYTES # (AUTO) 2.2 X 10^3 (1.0-4.0); LYMPHOCYTES % (AUTO) 29 % (12-44); MEAN CORPUSCULAR HEMOGLOBIN 26 PG (25-34); MEAN CORPUSCULAR HGB CONC 33 G/DL (32-36); MEAN CORPUSCULAR VOLUME 80 FL (80-99); MEAN PLATELET VOLUME 10.4 FL (7.4-10.4); MONOCYTES # (AUTO) 0.6 X 10^3 (0.0-1.0); MONOCYTES % (AUTO) 8 % (0-12); NEUTROPHILS # (AUTO) 4.4 X 10^3 (1.8-7.8); NEUTROPHILS % (AUTO) 58 % (42-75); PLATELET COUNT 303 10^3/uL (130-400); RED BLOOD COUNT 3.91 10^6/uL (4.35-5.85); WHITE BLOOD COUNT 7.5 10^3/uL (4.3-11.0)
[2018-05-24 06:26] LABS: ALANINE AMINOTRANSFERASE 27 U/L (0-55); ALBUMIN 3.3 GM/DL (3.2-4.5); ALKALINE PHOSPHATASE 169 U/L (40-136); BILIRUBIN,TOTAL 0.4 MG/DL (0.1-1.0); BUN/CREATININE RATIO 10; CALCIUM 9.6 MG/DL (8.5-10.1); CARBON DIOXIDE 22 MMOL/L (21-32); CHLORIDE 108 MMOL/L (98-107); GFR ESTIMATED > 60; GLUCOSE 82 MG/DL (70-105); POTASSIUM 3.5 MMOL/L (3.6-5.0); SODIUM 140 MMOL/L (135-145); TOTAL PROTEIN 6.9 GM/DL (6.4-8.2)
[2018-05-24 07:27] VITALS: BP 99/53
[2018-05-24] MEDS ORDERED: cefTRIAXone INJECTION 1,000 MG in NS (IVPB) 50 ML IV SCH (09:00)
[2018-05-24] MEDS ORDERED: SENNA W/DOCUSATE (SENOKOT S) TABLET PO NR (09:15)
[2018-05-24] MEDS ORDERED: LACTULOSE SYRUP 10GM/15ML (ENULOSE) 30ML UDC PO NR (09:15)
[2018-05-24] MEDS ORDERED: ACHD5005 PO (09:32)
[2018-05-24] MEDS ORDERED: CEFT1FRO2 IV (09:32)
--- NOTE | 2018-05-24 09:34 | Discharge Summary-Hospitalist ---
Diagnosis/Chief Complaint Date of Admission May 21, 2018 at 12:46 Date of Discharge Discharge Date: May 24, 2018 Admission Diagnosis Cellulitis/osteomyelitis right ankle. 2.previous trimalleolar fracture with operative repair Discharge Diagnosis (1) Ankle pain, right Status: Acute (2) Breast feeding status of mother Status: Acute (3) Sepsis Status: Resolved (4) Surgical site infection Status: Acute Discharge Summary Discharge Physical Exam Allergies: Coded Allergies: No Known Drug Allergies (Unverified , 05/21/18) Vitals & I&Os Vital Signs Date Time Temp Pulse Resp B/P (MAP) Pulse Ox O2 Delivery O2 Flow Rate FiO2 05/24/18 07:27 97.5 52 18 99/53 (68) 95 Room Air General Appearance: Alert, Oriented X3, Cooperative Respiratory: Clear to Auscultation, Normal Air Movement Neuro: Normal Speech, Strength at 5/5 X4 Ext Psych/Mental Status: Mental Status NL, Mood NL Hospital Course Hospital course: Patient had a brief and standard hospital course she was admitted for right ankle surgical site incision cellulitis placed on vancomycin and cefepime and IV fluids due to elevated lactic acid. Sepsis resolved patient was treated with pain medication and leg elevation and Dr. Leon was consulted who had placed the hardware when she had an ankle fracture recently. Culture was obtained from drainage antibiotics were narrowed with placement of Rocephin 1 g daily and PICC line will be placed and she will be on Rocephin for 6 weeks and close follow-up with Dr. Leon in case hardware must be removed. MRI was indeterminate with any osteomyelitis due to hardware skewing the MRI image but there was no abscess noted and Dr. Leon will have a close follow-up evaluating the patient and establish primary care provider with [facility] (last 24 hrs) Laboratory Tests 05/24/18 05:20: White Blood Count 7.5, Red Blood Count 3.91L, Hemoglobin 10.3L, Hematocrit 31L, Mean Corpuscular Volume 80, Mean Corpuscular Hemoglobin 26, Mean Corpuscular Hemoglobin Concent 33, Red Cell Distribution Width 14.0, Platelet Count 303, Mean Platelet Volume 10.4, Neutrophils (%) (Auto) 58, Lymphocytes (%) (Auto) 29 , Monocytes (%) (Auto) 8, Eosinophils (%) (Auto) 4, Basophils (%) (Auto) 0, Neutrophils # (Auto) 4.4, Lymphocytes # (Auto) 2.2, Monocytes # (Auto) 0.6, Eosinophils # (Auto) 0.3, Basophils # (Auto) 0.0, Sodium Level 140, Potassium Level 3.5L, Chloride Level 108H, Carbon Dioxide Level 22, Anion Gap 10, Blood Urea Nitrogen 6L, Creatinine 0.60, Estimat Glomerular Filtration Rate > 60, BUN/ Creatinine Ratio 10, Glucose Level 82, Calcium Level 9.6, Total Bilirubin 0.4, Aspartate Amino Transf (AST/SGOT) 24, Alanine Aminotransferase (ALT/SGPT) 27, Alkaline Phosphatase 169H, Total Protein 6.9, Albumin 3.3 Microbiology 05/21/18 Blood Culture - Preliminary, Resulted No growth 05/21/18 Gram Stain - Final, Resulted 05/21/18 Wound Culture - Preliminary, Resulted Strep, Beta Hemolytic Group A Staphylococcus aureus Patient resulted labs reviewed. Pending Labs Laboratory Tests 05/24/18 05:20: White Blood Count 7.5, Red Blood Count 3.91, Hemoglobin 10.3, Hematocrit 31, Mean Corpuscular Volume 80, Mean Corpuscular Hemoglobin 26, Mean Corpuscular Hemoglobin Concent 33, Red Cell Distribution Width 14.0, Platelet Count 303, Mean Platelet Volume 10.4, Neutrophils (%) (Auto) 58, Lymphocytes (%) (Auto) 29 , Monocytes (%) (Auto) 8, Eosinophils (%) (Auto) 4, Basophils (%) (Auto) 0, Neutrophils # (Auto) 4.4, Lymphocytes # (Auto) 2.2, Monocytes # (Auto) 0.6, Eosinophils # (Auto) 0.3, Basophils # (Auto) 0.0, Sodium Level 140, Potassium Level 3.5, Chloride Level 108, Carbon Dioxide Level 22, Anion Gap 10, Blood Urea Nitrogen 6, Creatinine 0.60, Estimat Glomerular Filtration Rate > 60, BUN/ Creatinine Ratio 10, Glucose Level 82, Calcium Level 9.6, Total Bilirubin 0.4, Aspartate Amino Transf (AST/SGOT) 24, Alanine Aminotransferase (ALT/SGPT) 27, Alkaline Phosphatase 169, Total Protein 6.9, Albumin 3.3 Discussion & Recommendations Discharge Planning: <30 minutes discharge planning Discharge Home Medications: Active Scripts Active Ceftriaxone 1 gm Piggyback (Ceftriaxone Na/Dextrose,Iso) 1 Gm/50 Ml Froz.piggy 1 Gm IV DAILY 42 Days Hydrocodone/Acetaminophen 5/325mg Tablet (Acetaminophen/Hydrocodone Bitart) 1 Tab Tab 1 Tab PO Q4H PRN Reported Tylenol Extra Strength (Acetaminophen) 500 Mg Tablet 1,000 Mg PO Q6H PRN Instructions to patient/family Please see electronic discharge instructions given to patient. Clinical Quality Measures DVT/VTE Risk/Contraindication: Risk Factor Score Per Nursin RFS Level Per Nursing on Admit: 4+=Very High Problem Qualifiers (1) Ankle pain, right: Chronicity: acute Qualified Codes: M25.571 - Pain in right ankle and joints of right foot (2) Sepsis: Sepsis type: sepsis due to unspecified organism Qualified Codes: A41.9 - Sepsis, unspecified organism (3) Surgical site infection: Encounter type: subsequent encounter Qualified Codes: T81.4XXD - Infection following a procedure, subsequent encounter MERRY FRANCISCO DO May 24, 2018 09:34
--- NOTE | 2018-05-24 10:24 | Progress Note-Standard ---
Standard Progress Note Progress Notes/Assess & Plan Date Seen by Provider: May 24, 2018 Time Seen by Provider: 10:00 Progress/Assessment & Plan MRI RLE inconclusive for osteomyelitis secondary to extensive hardware artifact , no abscess or focal fluid collection. No indication for surgical intervention at this time. Patient is responding well to medical treatment with IV antibiotic therapy. Surgical wounds appear stable Recommend continuation of IV antibiotic therapy for at least 4 weeks. Will monitor response to treatment and follow patient as an outpatient. I explained to the patient that at some point the hardware may need to be removed. She is less than 3 months out from operative fixation of her fracture which included a significant intraarticular component; therefore will treat medically now and allow additional time for healing. I explained the treatment plan in detail. Questions answered. Instructions given. F/U outpatient next week. Focused Exam Lactate Level 05/21/18 11:38: Lactic Acid Level 2.10*H 05/21/18 13:22: Lactic Acid Level 0.97 INES BAER DO May 24, 2018 10:23
--- NOTE | 2018-05-24 15:30 | Diagnostic Imaging Report ---
INDICATION: Evaluate PICC line placement. FINDINGS: The heart size is normal. Mediastinum is unremarkable. There is no pleural effusion, pneumothorax or pneumonia. PICC line has tip in superior vena cava. IMPRESSION: 1. No acute cardiopulmonary abnormality. 2. PICC line in satisfactory position. Dictated by: Dictated on workstation # [id number]
== END 2018-05-24 16:18 | disposition home or self-care (01) | DRG 862 ==
LOC: EDUNIT# 10:39 → ER 10:42 → 4TH 12:46
PROVIDERS: ADMIT Internal Medicine; ATTEND Internal Medicine
DX: T81.4XXA Infection following a procedure, initial encounter (principal); A41.9 Sepsis, unspecified organism; L03.115 Cellulitis of right lower limb; M86.9 Osteomyelitis, unspecified; M41.9 Scoliosis, unspecified; F43.10 Post-traumatic stress disorder, unspecified; F31.9 Bipolar disorder, unspecified; F60.3 Borderline personality disorder; Z87.891 Personal history of nicotine dependence
CPT/HCPCS: 36415; 71045; 73610; 73723; 80053; 80202; 83605; 84703; 85007; 85025; 85027; 85610; 85652; 85730; 86141; 87040; 87070; 87077; 87186; 87205; 93970; 96361; 96365; 96375

== ENCOUNTER 2018-06-04 06:14 | Day surgery (SDC) | payer MEDICAID ==
[~2018-06-04] VITALS: Ht 157.5 cm; Wt 99.8 kg
[~2018-06-04 06:14] MED LIST changes: +ACET-2267 PO; +CEFT1FRO2 IV
[2018-06-04] MEDS: LACTATED RINGERS 1,000 ML IV SCH ×3 (06:35→14:06)
--- OUTSIDE RECORDS SUMMARY | 2018-06-04 06:38 | XMS REPORT ---
Author Author KIMBERGULSHANMUSA [facility] Address [address] [place] [address] Care Team Providers Care Automat Watcher Name Role Phone JENNA QUIROGA Unavailable PROBLEMS Type Condition ICD9-CM Code [id number] Code Onset Dates Condition Status SNOMED Code Problem Bipolar II disorder F31.81 Active 07683370 Problem PTSD (post-traumatic stress disorder) F43.10 Active 18852826 Problem Bipolar disorder, unspecified F31.9 Active 04681280 Problem Post-traumatic stress disorder, chronic F43.12 Active 93059219 ALLERGIES No Information ENCOUNTERS Encounter Location Date Diagnosis [place] [address] [address] May, Cellulitis of right foot L03.115 and BMI 40.0-44.9, adult Z68.41 [place] [address] [place] [id number] [place] [address] February, [place] [address] [place] [id number] [place] [address] Jan, Post-traumatic stress disorder, chronic F43.12 ; Bipolar disorder, unspecified F31.9 ; Bipolar II disorder F31.81 ; PTSD (post-traumatic stress disorder) F43.10 and BMI 40.0-44.9, adult Z68.41 [place] [address] [place] [id number] [place] [address] Dec, [place] [address] [address] Dec, Post-traumatic stress disorder, chronic F43.12 ; Bipolar disorder, unspecified F31.9 ; Bipolar II disorder F31.81 and PTSD (post- traumatic stress disorder) F43.10 [place] [address] [place] [id number] [address] Nov, [facility] [address] [address] Oct, Post-traumatic stress disorder, chronic F43.12 and Bipolar disorder, unspecified F31.9 [facility] [address] [address] Oct, Bipolar II disorder F31.81 ; PTSD (post-traumatic stress disorder) F43.10 and Generalized anxiety disorder F41.1 [facility] [address] [address] Oct, Post-traumatic stress disorder, chronic F43.12 and Bipolar disorder, unspecified F31.9 [facility] [address] [place] [id number] [address] Dec, Acute left otitis media H66.92 IMMUNIZATIONS No Known Immunizations SOCIAL HISTORY Never Assessed REASON FOR VISIT Cant Make Appt Today PLAN OF CARE VITAL SIGNS MEDICATIONS No Known Medications RESULTS No Results PROCEDURES No Known procedures INSTRUCTIONS MEDICATIONS ADMINISTERED No Known Medications MEDICAL (GENERAL) HISTORY Type Description Date Medical History asthma Medical History PTSD Medical History borderline personality disorder Surgical History Rt foot 01/2018 Hospitalization History Infection Rt foot 05/2018
--- OUTSIDE RECORDS SUMMARY | 2018-06-04 06:38 | XMS REPORT ---
Author Author KIMBER JENNA [address] Address [address] [place] [address] Care Team Providers Care Upholstery Cutter Name Role Phone GULSHAN QUIROGAMUSA Unavailable PROBLEMS Type Condition ICD9-CM Code [id number] Code Onset Dates Condition Status SNOMED Code Problem Bipolar II disorder F31.81 Active 27742755 Problem PTSD (post-traumatic stress disorder) F43.10 Active 81716025 Problem Bipolar disorder, unspecified F31.9 Active 91565024 Problem Post-traumatic stress disorder, chronic F43.12 Active 19808326 ALLERGIES No Known Allergies ENCOUNTERS Encounter Location Date Diagnosis [place] [address] [place] [id number] [place] [address] February, [place] [address] [place] [id number] [place] [address] Jan, Post-traumatic stress disorder, chronic F43.12 ; Bipolar disorder, unspecified F31.9 ; Bipolar II disorder F31.81 ; PTSD (post-traumatic stress disorder) F43.10 and BMI 40.0-44.9, adult Z68.41 [place] [address] [place] [address] Dec, [place] [address] [place] [id number] [place] [address] Dec, Post-traumatic stress disorder, chronic F43.12 ; Bipolar disorder, unspecified F31.9 ; Bipolar II disorder F31.81 and PTSD (post- traumatic stress disorder) F43.10 [place] [address] [address] Nov, [place] [address] [place] [id number] [place] [address] Oct, Post-traumatic stress disorder, chronic F43.12 and Bipolar disorder, unspecified F31.9 [facility] [place] [address] [facility] [id number] [place] [address] Oct, Bipolar II disorder F31.81 ; PTSD (post-traumatic stress disorder) F43.10 and Generalized anxiety disorder F41.1 [facility] [place] [address] [facility] [id number] [address] Oct, Post-traumatic stress disorder, chronic F43.12 and Bipolar disorder, unspecified F31.9 [facility] [address] [facility] [id number] [address] Dec, Acute left otitis media H66.92 IMMUNIZATIONS No Known Immunizations SOCIAL HISTORY Never Assessed REASON FOR VISIT f/u Rex PLAN OF CARE Activity Details Follow Up 4 Weeks Reason: VITAL SIGNS Height 62 in 2018-01-24 Weight 219.6 lbs 2018-01-24 Heart Rate 96 bpm 2018-01-24 Respiratory Rate 20 2018-01-24 BMI 40.16 kg/m2 2018-01-24 Blood pressure systolic 114 mmHg 2018-01-24 Blood pressure diastolic 68 mmHg 2018-01-24 MEDICATIONS Medication Instructions Dosage Frequency Start Date End Date Duration Status Lamictal 150 MG Orally Once a day 1 tablet 24h Oct, 30 days Active Paxil 20 MG Orally Once a day 1 tablet in the morning 24h Oct, 15 days Active Prazosin HCl 2 MG Orally Once a day at bedtime 1 capsule Oct, 30 days Active Trazodone HCl 50 MG Orally Once a day 1 tablet at bedtime as needed 24h Jan, 30 day(s) Active RESULTS No Results PROCEDURES No Known procedures INSTRUCTIONS MEDICATIONS ADMINISTERED No Known Medications MEDICAL (GENERAL) HISTORY Type Description Date Medical History asthma Medical History PTSD
[2018-06-04 06:45] VITALS: BP 110/77
[2018-06-04 06:50] LABS: BASOPHILS # (AUTO) 0.1 10^3/uL (0.0-0.1); BASOPHILS % (AUTO) 1 % (0-10); EOSINOPHILS # (AUTO) 0.2 10^3/uL (0.0-0.3); EOSINOPHILS % (AUTO) 3 % (0-10); HEMATOCRIT 33 % (35-52); HEMOGLOBIN 10.9 G/DL (11.5-16.0); LYMPHOCYTES % (AUTO) 44 % (12-44); MEAN CORPUSCULAR HEMOGLOBIN 27 PG (25-34); MEAN CORPUSCULAR HGB CONC 33 G/DL (32-36); MEAN CORPUSCULAR VOLUME 80 FL (80-99); MEAN PLATELET VOLUME 9.8 FL (7.4-10.4); MONOCYTES # (AUTO) 0.6 X 10^3 (0.0-1.0); MONOCYTES % (AUTO) 9 % (0-12); NEUTROPHILS % (AUTO) 44 % (42-75); PLATELET COUNT 502 10^3/uL (130-400); RED BLOOD COUNT 4.09 10^6/uL (4.35-5.85); RED CELL DISTRIBUTION WIDTH 13.9 % (10.0-14.5); WHITE BLOOD COUNT 6.8 10^3/uL (4.3-11.0)
[2018-06-04] MEDS ORDERED: ceFAZolin 2 GM IV Premixed 50 ML ONE (06:53)
[2018-06-04 07:21] LABS: ERYTHROCYTE SEDIMENTATION RATE 73 MM/HR (0-20)
[2018-06-04] MEDS ORDERED: BUPIVACAINE 0.25% 30 ML (SENSORCAINE) VIAL ONE (07:37)
[2018-06-04] MEDS ORDERED: ANCEF 2 GM/50 ML PRE-MIXED IVPB IV ONE (08:15)
[2018-06-04] MEDS ORDERED: fentaNYL INJECTION 100 MCG/2 ML AMP ONE ×3 (08:48→11:09)
[2018-06-04] MEDS ORDERED: MIDAZOLAM 2 MG/2 ML (VERSED) VIAL ONE (08:48)
[2018-06-04] MEDS ORDERED: ROPIVACAINE 5MG/ML 30ML VIAL ONE (10:24)
[2018-06-04] MEDS ORDERED: NEOSTIGMINE 1 MG/ML 5 ML SYRINGE ONE (10:24)
[2018-06-04] MEDS ORDERED: LIDOCAINE PF 2% 5 ML (XYLOCAINE) VIAL ONE (10:24)
[2018-06-04] MEDS ORDERED: proPOfol 200 MG/20 ML (DIPRIVAN) VIAL IV ONE (10:24)
[2018-06-04] MEDS ORDERED: ROCURONIUM 10 MG/ML 5 ML SYRINGE IV ONE (10:24)
[2018-06-04] MEDS ORDERED: BUPIVACAINE 0.5% 30 ML (SENSORCAINE) VIAL ONE (10:24)
[2018-06-04] MEDS ORDERED: GLYCOPYRROLATE 0.2 MG/ML (ROBINUL) 2 ML VIAL ONE (10:24)
[2018-06-04] MEDS ORDERED: ONDANSETRON 4 MG/2 ML (SDV) Z0FRAN ONE ×2 (10:37→12:11)
[2018-06-04] MEDS ORDERED: ceFAZolin INJECTION 1,000 MG in NS (IVPB) 50 ML IV ONE (10:45)
[2018-06-04] MEDS ORDERED: cefTRIAXone FOR IV USE 1,000 MG in NS (IVPB) 50 ML IV ONE (10:45)
[2018-06-04] MEDS ORDERED: SEVOFLURANE (ULTANE) 15 ML INHAL SOLN ONE ×2 (11:11→12:23)
[2018-06-04] MEDS ORDERED: KETOROLAC 30 MG/ML VIAL ONE (11:21)
[2018-06-04] MEDS ORDERED: ACHD5005 PO (11:53)
--- NOTE | 2018-06-04 11:56 | Diagnostic Imaging Report ---
INDICATION: Hardware removal of the right ankle. PROCEDURE: Fluoroscopy was provided in the OR during hardware removal. 21 seconds of fluoroscopy was utilized. There appear to be multiple old screw tracks in the distal tibia and fibula. No residual hardware is seen. IMPRESSION: Fluoroscopy for right ankle hardware removal. Dictated by: Dictated on workstation # [id number]
--- NOTE | 2018-06-04 11:58 | Progress Note-Post Operative ---
Post-Operative Progess Note Surgeon (s)/Bag Patcher (s) Surgeon INES BAER DO Bag Patcher: None Pre-Operative Diagnosis INFECTED HARDWARE RIGHT ANKLE Post-Operative Diagnosis Same Procedure & Operative Findings Date of Procedure 06/04/18 Procedure Performed/Findings I&D/Removal of infected hardware Right ankle Findings: small area of subcutaneous necrotic tissue midportion of posterolateral incision; no gross purulence, no fluid collections, healthy appearing soft tissue bed, stable fractures with solid bony union, no gross signs of osteomyelitis encountered. Anesthesia Type GETA Estimated Blood Loss Estimated blood loss (mL): 25 Specimens/Packing Specimens Removed None Complications: none Disposition: patient tolerated the procedure well; transferred to PACU in stable condition. INES BAER DO Jun 04, 2018 11:58
[2018-06-04] MEDS ORDERED: HYDROcodone/APAP 5 MG/325 MG (LORTAB) TAB PO PRN (12:00)
--- NOTE | 2018-06-04 12:01 | Discharge Inst-Surgical ---
Discharge Inst-Surgical Depart Medication/Instructions New, Converted or Re-Newed RX: RX on Chart Consults/Follow Up Goal/Follow Up Appt.: Follow up with Dr. Baer at [address], [place] in 7-10 days; please call office to confirm your appointment. Activity Activity as Tolerated: Yes You may bear weight as tolerated on your Right leg Activity Instructions: Avoid Stress to Incision Elevate Extremity: Elevate Above Heart Driving Instructions: You May Drive No Driving When on Pain Meds: Yes Diet Discharge Diet: No Restrictions Symptoms to Report to Physicia: Pain Increased, Fever Over 101 Degrees F Skin/Wound Care Infection Signs and Symptoms: Increased Redness, Foul Odor of Wound, Increased Drainage, Increased Swelling, Temperature Above 101 F Wound Care Comment: Keep your incisions clean and dry; you may remove your dressings in 5 days and shower; no baths or soaking tubs Operative Area Clean and Dry: Keep Incision Clean/Dry Ice Pack: Ice On and Off Site INES BAER DO Jun 04, 2018 12:01
[2018-06-04] MEDS ORDERED: HYDROmorphone 1 MG/ML (DILAUDID) 1 ML SYRINGE ONE (12:11)
[2018-06-04] MEDS: HYDROmorphone 1 MG/ML (DILAUDID) 1 ML SYRINGE IV PRN ×2 (12:14→12:24)
[2018-06-04] MEDS ORDERED: PROMETHAZINE INJ 25 MG/ML (PHENERGAN) AMP ONE (12:28)
[2018-06-04] MEDS: PROMETHAZINE INJ 25 MG/ML (PHENERGAN) AMP IVP PRN ×2 (12:30→12:56)
[2018-06-04] MEDS ORDERED: ONDANSETRON 4 MG/2 ML (SDV) Z0FRAN IVP PRN (12:30)
[2018-06-04] MEDS ORDERED: MEPERIDINE (DEMEROL) INJ 50 MG/ML IVP PRN (12:30)
[2018-06-04] MEDS ORDERED: fentaNYL INJECTION 100 MCG/2 ML AMP IVP PRN (12:30)
[2018-06-04 13:20] VITALS: BP 123/73
[2018-06-04] MEDS ORDERED: PROMETHAZINE INJ 25 MG/ML (PHENERGAN) AMP IVP PRN (13:30)
[2018-06-04 13:50] VITALS: BP 130/84
[2018-06-04 14:20] VITALS: BP 124/75
[2018-06-04 15:10] VITALS: BP 124/75
--- NOTE | 2018-06-05 10:12 | Anesthesia-General Post-Op ---
General Patient Condition Mental Status/LOC: Same as Preop Cardiovascular: Satisfactory Nausea/Vomiting: Absent Respiratory: Satisfactory Pain: Controlled Complications: Absent Post Op Complications Complications None Follow Up Care/Instructions Patient Instructions None needed. Anesthesia/Patient Condition Patient Condition Post-op completed at 1430 on 06/04/18: Patient was doing well, no complaints, stable vital signs, no apparent adverse anesthesia problems. No complications reported per nursing. MERA MOTA CRNA Jun 05, 2018 10:12
--- NOTE | 2018-06-09 18:23 | OPERATIVE REPORT ---
DATE OF SERVICE: 06/04/2018 PREPROCEDURE DIAGNOSIS: Infected hardware, right ankle. POSTPROCEDURE DIAGNOSIS: Infected hardware, right ankle. PROCEDURE: Irrigation and debridement with removal of infected hardware, right ankle. ATTENDING SURGEON: Dr. Ines Baer. ANESTHESIA: General endotracheal with peripheral nerve block. ESTIMATED BLOOD LOSS: 25 mL. COMPLICATIONS: None. SPECIMENS: None. DRAINS: None. BRIEF HISTORY AND INDICATIONS: The patient is a 27-year-old female, who had undergone open reduction and internal fixation of a trimalleolar fracture of her right ankle on 03/01/2018. Despite noncompliance, the patient had recovered relatively uneventfully. Over the last week, the patient had been complaining of some mild drainage coming from the medial incision of the right ankle as well as increasing swelling, redness and pain. The patient had presented to the [facility] for evaluation secondary to her symptoms. While in the Emergency Department, wound cultures were obtained from the medial incision, which eventually were positive for streptococcal species. She was admitted to the hospital at that time for cellulitis and possible infected hardware of her right lower extremity and ankle. I did evaluate her while in the hospital at that time, she did have cellulitis, there was also a small area in the distal aspect of the medial incision that had some mild superficial dehiscence, no active drainage. She was placed on IV antibiotics per the medicine service at that time. Advanced imaging in the way of an MRI of the patient's right ankle was obtained during that hospital stay. The results were unequivocal for osteomyelitis secondary to extensive hardware artifact; however, there were no obvious fluid collections evident on the MRI. Therefore, no surgical debridement was recommended at that time. The patient was discharged from the hospital after a short stay in medically and orthopedically stable condition. I saw her in the office approximately one week after discharge. At that time, the medial incision was quite stable, however, she did have significant swelling and persistent erythema around the ankle more specifically, relative to posterolateral incision. There was also some palpable fluid collection along the mid portion of the posterolateral incision of the right ankle. I explained to the patient that this was concerning for hardware infection. At this point, I ordered a CT scan of the right ankle to assess for possible deep fluid collection as well as to confirm that all of the fractures were adequately healed, so as to permit hardware removal. The CT scan did appear to have a small fluid collection deep in the posterolateral interval, all of the fractures appeared to be adequately healed so as to facilitate hardware removal. There was no evidence of osteomyelitis or lysis of the bone on the CT scan. I explained to the patient that in order to prevent chronic infection, the hardware would need to be removed. Surgical plan was for irrigation and debridement with removal of the hardware of her right ankle. I discussed the surgical plan in detail including the risks, benefits, potential complications and expected outcomes. Those risks that were discussed included bleeding, persistent infection including osteomyelitis, damage to surrounding neurovascular structures, and potential need for further operative debridements and secondary surgical procedures. The patient gave informed written consent to proceed as planned after all of her questions were answered to her satisfaction. PROCEDURE NOTE: After correctly identifying the patient as the patient in the preoperative holding area and after her right lower extremity was appropriately marked, she was transferred to the operating room. Once in the operating room, the patient had successful induction of general endotracheal anesthesia as well as a peripheral nerve block. Then, she was transferred to the radiolucent OR table and placed in the prone position. All bony prominences were meticulously padded. She was placed on well-padded bolsters. Bilateral upper extremities were placed in the safe position. A tourniquet was applied to the upper thigh of the right lower extremity. The right leg was then prepped and draped in the routine sterile fashion. Prior to beginning the case, we completed an operating room timeout with all parties involved in the case and agreement and verified appropriate infusion of her scheduled antibiotic. The tourniquet was elevated to 350 mmHg after exsanguination of a sterile Esmarch bandage. I then used a sterile marking pen to rosa out the planned incision utilizing the previous posterolateral approach. I then used a 10 blade scalpel to ellipse out the previous surgical scar and then incise through the deeper subcutaneous tissue. The deep fascia was dissected with the use of Bovie cautery and blunt Metzenbaum scissors, taking great care to protect the neurovascular bundle. I then exploited the interval between the FHL and the peroneal musculature. The fibular plate on the posterolateral surface was then dissected out using blunt and sharp technique. Of note, at this point it did not encounter any gross purulence, all of the soft tissue appeared to be quite healthy. There were no signs of grossly deep infection. There were no significant fluid collections. In the deeper subcutaneous tissue, there was a small area of approximately 1 cm in diameter of necrotic tissue. This tissue was removed with a 10 blade scalpel. This tissue included some subcutaneous tissue and fascia. The plate on the posterolateral aspect of the fibula was then removed in its entirety without complications. Gross inspection of the fibula confirmed complete bony union, no gross signs of infection or osteomyelitis. I then turned my attention to exposing the plate on the posterior aspect of the distal tibia. The plate was exposed safely using both blunt and sharp techniques. Once the plate was exposed, it was removed in its entirety without complications. Inspection of the posterior distal tibia confirmed that the posterior malleolus fracture had undergone complete bony union, there were no gross signs of infection or osteomyelitis. At this point, the wound was irrigated with copious amounts of sterile saline with pulse lavage on low pressure. I then turned my attention to removing the lag screw in the medial malleolus. Using fluoroscopic guidance, I localized the lag screw and then made a small incision through the skin and subcutaneous tissue with a 15 blade scalpel. The medial malleolus lag screw was then removed in its entirety under fluoroscopic guidance. Inspection of the medial malleolus confirmed that it had undergone complete bony union, it was stable, nor were there any signs of gross infection or osteomyelitis. Final inspection of both the medial and lateral, posterolateral wounds confirmed that there were no gross signs of infection. Once this was confirmed, final C-arm imaging also confirmed that all of the hardware had been removed in its entirety. The ankle mortise was confirmed to be in anatomic position. The tourniquet was then deflated and then meticulous hemostasis was achieved prior to closure. Closure was completed with 0 PDS for the deep fascia, 2-0 PDS for the subcutaneous tissue and 2-0 nylon for the skin. The patient had a sterile dressing applied and then was awakened and extubated in the operating room without complications. She was then transferred to the PACU in stable condition. She tolerated the procedure quite well. All counts were correct at the end of the case. PLAN: The patient will continue her IV antibiotics as prescribed per the Medicine Service. She will be allowed to weightbear as tolerated on her right lower extremity. She was given an oral narcotic for pain control. I gave her wound care instructions as well as instructions to follow up in the office within one week for wound check. I explained to her that given the overall healthy appearance of her incisions and the fact that her fractures had appeared to undergone complete bony union that her prognosis was quite good. The patient verbalized her understanding of all of her discharge instructions at the time of discharge from the hospital. Job ID: [id number] DocumentID: [id number] Dictated Date: 06/09/2018 11:18:35 Pupil Personnel Services Director Date: 06/09/2018 18:23:14 Dictated By: INES BAER
== END 2018-06-04 15:20 | disposition home or self-care (01) ==
LOC: SDC 06:14
PROVIDERS: ATTEND Orthopaedic Surgery Orthopaedic Trauma
DX: T84.624A Infection and inflammatory reaction due to internal fixation device of right fibula, initial encounter (principal); T84.622A Infection and inflammatory reaction due to internal fixation device of right tibia, initial encounter; T84.69XA Infection and inflammatory reaction due to internal fixation device of other site, initial encounter; I96 Gangrene, not elsewhere classified; F17.210 Nicotine dependence, cigarettes, uncomplicated
CPT/HCPCS: 36415; 84703; 85025; 85652; 86141; 87081; 96365

== ENCOUNTER 2018-07-06 08:16 | Outpatient (RCR) | payer MEDICAID ==
[2018-05-25 14:40] VITALS: BP 100/76
[2018-05-26 13:15] VITALS: BP 113/59
[2018-05-27 13:17] VITALS: BP 127/57
[2018-05-28 11:23] VITALS: BP_SYST 111; BP_SYST 127; BP_DIAS 57; BP_DIAS 68
[2018-05-28 11:37] VITALS: BP 111/68
--- NOTE | 2018-05-28 12:26 | Physician Query-Final Dx ---
EDITH ASTUDILLO 05/28/18 1226: Clinic Account Progress/Dx Physician Query: Please give a diagnosis for the Ceftriaxone treatment thank you Date of Service May 28, 2018 at 11:00 MERRY FRANCISCO DO 05/29/18 2008: Clinic Account Progress/Dx DIAGNOSIS: Diagnosis cellulitis with MSSA EDITH ASTUDILLO May 28, 2018 12:26 MERRY FRANCISCO DO May 29, 2018 20:08
[2018-05-29 11:16] VITALS: BP 109/79
[2018-05-30 14:57] VITALS: BP 120/73
[2018-05-31 11:50] VITALS: BP 125/68
[2018-06-01 11:50] VITALS: BP 117/75
[2018-06-02 11:02] VITALS: BP 111/69
[2018-06-03 10:55] VITALS: BP 110/84
[2018-06-05 14:35] VITALS: BP 127/63
[2018-06-06 14:40] VITALS: BP 123/72
[2018-06-07 16:05] VITALS: BP 119/67
[2018-06-08 13:50] VITALS: BP 119/71
[2018-06-09 10:45] VITALS: BP 130/72
[2018-06-10 10:45] VITALS: BP 106/69
[2018-06-11 14:45] VITALS: BP 121/76
[2018-06-12 11:55] VITALS: BP 118/57
[2018-06-13 14:40] VITALS: BP 124/79
[2018-06-14 10:35] VITALS: BP 120/54
[2018-06-15 14:33] VITALS: BP 120/76
[2018-06-16 09:48] VITALS: BP 122/71
[2018-06-17 10:20] VITALS: BP 122/56
[2018-06-18 10:23] VITALS: BP 124/65
[2018-06-19 14:25] VITALS: BP 122/68
[2018-06-20 10:32] VITALS: BP 113/74
[2018-06-21 14:30] VITALS: BP 111/77
[2018-06-22 15:10] VITALS: BP 118/67
[2018-06-23 10:05] VITALS: BP 116/70
[2018-06-24 10:10] VITALS: BP 112/70
[2018-06-25 10:20] VITALS: BP 112/82
[2018-06-26 16:49] VITALS: BP 121/90
[2018-06-27 16:10] VITALS: BP 123/80
[2018-06-28 14:25] VITALS: BP 114/53
[2018-06-29 14:20] VITALS: BP 131/68
[2018-06-29 14:58] VITALS: BP 131/68
[2018-06-30 09:25] VITALS: BP 136/70
[2018-07-01 10:20] VITALS: BP 133/71
[2018-07-02 14:53] VITALS: BP 127/81
[2018-07-03 16:08] VITALS: BP 122/83
[2018-07-04 12:25] VITALS: BP 120/74
[2018-07-05 15:30] VITALS: BP 115/75
[~2018-07-06] VITALS: Ht 157.5 cm; Wt 99.8 kg
[2018-07-06 08:15] VITALS: BP 102/43
[2018-07-06] MEDS ORDERED: cefTRIAXone 1 GM/10 ML for IV (ROCEPHIN) ONE (08:20)
[2018-07-06] MEDS ORDERED: NS (IVPB) 50 ML ONE (08:20)
== END 2018-07-06 12:51 | disposition home or self-care (01) ==
LOC: SDC 08:16
PROVIDERS: ATTEND Internal Medicine
DX: L03.115 Cellulitis of right lower limb (principal); B95.61 Methicillin susceptible Staphylococcus aureus infection as the cause of diseases classified elsewhere; Z45.2 Encounter for adjustment and management of vascular access device
CPT/HCPCS: 96365; 99211

== ENCOUNTER → 2018-11-19 | Outpatient (CLI) | payer MEDICAID ==
--- NOTE | 2018-11-19 15:37 | Diagnostic Imaging Report ---
INDICATION: survey. TECHNIQUE: Multiple real-time grayscale images were obtained over the gravid uterus. COMPARISON: There are no prior studies available for comparison. FINDINGS: There is a single live fetus in variable presentation. heart motion was noted and a rate of 139 BPM was recorded. There were no abnormalities identified. The placenta is fundal and there is no previa. The amniotic fluid volume is within normal limits. The cervix measured 5.93 cm in length. The growth parameters are fairly uniform. IMPRESSION: 1. There is a single live fetus at approximately 19 weeks 2 days gestation +/-1.5 weeks. The EDC is April 13, 2019. 2. There were no abnormalities identified. 3. The growth parameters are fairly uniform. Biometrical measurements are as follows: Biparietal 4.36 cm, age 19 weeks 2 days. Head circumference 16.50 cm, age 19 weeks 2 days. Abdominal circumference 14.24 cm, age 19 weeks 5 days. Femur length 2.86 cm, age 18 weeks 6 days. Sonographic estimate age: 19 weeks 2 days. Sonographic estimated date of delivery: 04/13/2019. Estimated Weight: 280 gm (+/- 41 gm). LMP percentile: 59%. heart rate: 139 beats per minute. number: 1 of 1. Dictated by: Dictated on workstation # [id number]
== END ==
LOC: RAD 13:30
PROVIDERS: ATTEND Obstetrics & Gynecology
DX: Z36.89 Encounter for other specified antenatal screening (principal); Z3A.19 19 weeks gestation of pregnancy
CPT/HCPCS: 76805

== ENCOUNTER 2018-12-05 13:17 | Emergency (ER) | payer MEDICAID ==
[~2018-12-05] VITALS: Ht 162.6 cm; Wt 90.7 kg
[2018-12-05] MEDS ORDERED: PREN-51 PO (13:44)
--- NOTE | 2018-12-05 14:14 | ED EENT ---
History of Present Illness General Chief Complaint: Nasal Problems Stated Complaint: NOSE INJ Nursing Triage Note: PT AMBULATED TO FT1. PT STATES TRIPPED OVER TOY AND HIT DOOR FACING, ICE APPLIED, STATES HAD BLOODY NOSE, NO BLEEDING AT THIS X. PT DENIES LOC. BRUISING NOTED ON NASAL BRIDGE AREA Source: patient Exam Limitations: no limitations History of Present Illness Date Seen by Provider: Dec 05, 2018 Time Seen by Provider: 14:11 Initial Comments To ER with reports of nasal injury. She tripped over one of her children's toys and ran into the door frame at home. She has bruising to the bridge of her nose. No loss of consciousness, no facial or cheek bone pain, only pain of the bridge of the nose. She did have some epistaxis as well. Timing/Duration: this morning Severity: moderate Location: nose, facial Associated Symptoms: nasal congestion/drainage Allergies and Home Medications Allergies Coded Allergies: No Known Drug Allergies (Unverified , 05/21/18) Patient Home Medication List Home Medication List Reviewed: Yes Review of Systems Review of Systems Constitutional: see HPI Eyes: No Symptoms Reported Ears: No Symptoms Reported Nose: see HPI, epistaxis Mouth: no symptoms reported Throat: no symptoms reported Respiratory: no symptoms reported Cardiovascular: no symptoms reported Expected Date of Delivery: Mar 23, 2019 Musculoskeletal: no symptoms reported Past Ernyqis-Qtemak-Usaahq Hx Patient Social History Alcohol Use: Denies Use Number of Drinks Today: FF Alcohol Beverage of Choice: Wine, Vodka Recreational Drug Use: No Smoking Status: Former Smoker Type Used: Cigarettes Former Smoker, Quit: Jan 22, 2016 2nd Hand Smoke Exposure: No Recent Foreign Travel: No Contact w/Someone Who Travel: No Recent Infectious Disease Expo: No Recent Hopitalizations: No Immunizations Up To Date Tetanus Booster (TDap): Less than 5yrs PED Vaccines UTD: Yes Date of Influenza Vaccine: Jul 12, 2017 Seasonal Allergies Seasonal Allergies: No Past Medical History Surgeries: Yes (dental, 2 plates/9 screws Right ankle) Orthopedic, Tonsillectomy Respiratory: No Cardiac: No Neurological: No : Yes Expected Date of Delivery: Mar 23, 2019 Last Menstrual Period: Feb 19, 2018 Reproductive Disorders: No Female Reproductive Disorders: Denies Sexually Transmitted Disease: No HIV/AIDS: No Genitourinary: No Gastrointestinal: No Musculoskeletal: Yes Scoliosis, Fractures Endocrine: No HEENT: No Cancer: No Psychosocial: Yes (Borderline Personality) PTSD, Bipolar Integumentary: No Blood Disorders: No Adverse Reaction/Blood Tranf: No Family Medical History Patient reports no known family medical history. Physical Exam Vital Signs Vital Signs - First Documented 12/05/18 13:25 Temp 98.4 Pulse 120 Resp 18 B/P (MAP) 106/81 (89) Pulse Ox 96 Height, Weight, BMI Height: 5'4.00" Weight: 200lbs. 0.0oz. 90.078702zp; 40.2 BMI Method:Estimated General Appearance: WD/WN, no apparent distress Eyes: bilateral eye normal inspection, bilateral eye PERRL, bilateral eye EOMI Ears: bilateral ear auricle normal, bilateral ear canal normal, bilateral ear TM normal Nose: No active bleeding; other (no septal hematoma, small amount of blood in the left nostril, none in the right.) Neck: non-tender, full range of motion Respiratory: no respiratory distress, no accessory muscle use Gastrointestinal: normal bowel sounds, non tender Neurologic/Psychiatric: alert, normal mood/affect, oriented x 3 Skin: normal color, warm/dry Progress/Results/Core Measures Results/Orders Vital Signs/I&O 12/05/18 13:25 Temp 98.4 Pulse 120 Resp 18 B/P (MAP) 106/81 (89) Pulse Ox 96 Blood Pressure Mean: 89 Departure Communication (Admissions) She is and I discussed with her obtaining x-ray images. However there is no obvious deformity or deviation of the nasal septum so x-ray would not change our management plan. Impression Primary Impression: Nasal bone fracture Qualified Codes: S02.2XXA - Fracture of nasal bones, initial encounter for closed fracture Disposition: HOME, SELF-CARE Condition: Stable Departure-Patient Inst. Decision time for Depature: 14:15 Referrals: [facility] (PCP/Family) Primary Care Physician Patient Instructions: Nose Fracture (DC) Add. Discharge Instructions: 1. Return to ER for any concerns 2. Antibiotics as directed 3. Tylenol as needed for pain and antibiotics as directed. Ice pack to the nose as much as possible for the next 1-2 days. All discharge instructions reviewed with patient and/or family. Voiced understanding. Scripts Amoxicillin (Amoxicillin) 500 Mg Capsule 500 MG PO TID, #15 CAP Prov: ELVA JOINER VEHICLE MODIFICATION TECHNICIAN 12/05/18 ELVA JOINER APRN Dec 05, 2018 14:14
[2018-12-05] MEDS ORDERED: AMOX500C2 PO (14:16)
[2018-12-05 14:19] VITALS: BP 106/81
--- OUTSIDE RECORDS SUMMARY | 2018-12-05 14:30 | XMS REPORT ---
Author Author KING CASSIDY [facility] Address [address] [place] [address] Care Team Providers Care Material Flow Engineer Name Role Phone CASSIDY LEARY Unavailable PROBLEMS Type Condition ICD9-CM Code [id number] Code Onset Dates Condition Status SNOMED Code Problem Bipolar II disorder F31.81 Active 26292648 Problem PTSD (post-traumatic stress disorder) F43.10 Active 90064918 Problem Bipolar disorder, unspecified F31.9 Active 39241838 Problem Post-traumatic stress disorder, chronic F43.12 Active 00753484 ALLERGIES No Information ENCOUNTERS Encounter Location Date Diagnosis [place] [address] [address] Jun, [place] [address] [place] [id number] [place] [phone] May, Cellulitis of right foot L03.115 and BMI 40.0-44.9, adult Z68.41 [place] [address] [place] [id number] [place] [phone] February, [place] [address] [place] [id number] [place] [address] Jan, Post-traumatic stress disorder, chronic F43.12 ; Bipolar disorder, unspecified F31.9 ; Bipolar II disorder F31.81 ; PTSD (post-traumatic stress disorder) F43.10 and BMI 40.0-44.9, adult Z68.41 [place] [address] [place] [id number] [place] [address] Dec, [place] [address] [place] [id number] [place] [address] Dec, Post-traumatic stress disorder, chronic F43.12 ; Bipolar disorder, unspecified F31.9 ; Bipolar II disorder F31.81 and PTSD (post- traumatic stress disorder) F43.10 [facility] [id number] [address] Nov, [facility] [id number] [place] [address] Oct, Post-traumatic stress disorder, chronic F43.12 and Bipolar disorder, unspecified F31.9 [facility] [address] [place] [id number] [place] [address] Oct, Bipolar II disorder F31.81 ; PTSD (post-traumatic stress disorder) F43.10 and Generalized anxiety disorder F41.1 [facility] [id number] [place] [address] Oct, Post-traumatic stress disorder, chronic F43.12 and Bipolar disorder, unspecified F31.9 [facility] [address] [address] Dec, Acute left otitis media H66.92 IMMUNIZATIONS No Known Immunizations SOCIAL HISTORY Never Assessed REASON FOR VISIT PLAN OF CARE VITAL SIGNS MEDICATIONS Unknown Medications RESULTS No Results PROCEDURES No Known procedures INSTRUCTIONS MEDICATIONS ADMINISTERED No Known Medications MEDICAL (GENERAL) HISTORY Type Description Date Medical History asthma Medical History PTSD Medical History borderline personality disorder Surgical History Rt foot 01/2018 Hospitalization History Infection Rt foot 05/2018
--- OUTSIDE RECORDS SUMMARY | 2018-12-05 14:30 | XMS REPORT ---
Author Author KING CASSIDY [facility] Address [address] [place] [address] Care Team Providers Care Basic Acoustic Analyst Name Role Phone CASSIDY LEARY Unavailable PROBLEMS Type Condition ICD9-CM Code CAH45-HW Code Onset Dates Condition Status SNOMED Code Problem Bipolar II disorder F31.81 Active 46366552 Problem PTSD (post-traumatic stress disorder) F43.10 Active 20121418 Problem Bipolar disorder, unspecified F31.9 Active 18439267 Problem Post-traumatic stress disorder, chronic F43.12 Active 16814437 ALLERGIES No Known Allergies ENCOUNTERS Encounter Location Date Diagnosis [place] [address] [address] Jun, [place] [address] [address] May, Cellulitis of right foot L03.115 and BMI 40.0-44.9, adult Z68.41 [place] [address] [place] [id number] [place] [address] February, [place] [id number] [place] [address] Jan, Post-traumatic stress disorder, chronic F43.12 ; Bipolar disorder, unspecified F31.9 ; Bipolar II disorder F31.81 ; PTSD (post-traumatic stress disorder) F43.10 and BMI 40.0-44.9, adult Z68.41 [place] [address] [place] [id number] [place] [address] Dec, [place] [address] [place] [id number] [place] [address] Dec, Post-traumatic stress disorder, chronic F43.12 ; Bipolar disorder, unspecified F31.9 ; Bipolar II disorder F31.81 and PTSD (post- traumatic stress disorder) F43.10 [facility] [address], [place] [address] Nov, [facility] [id number] [place] [address] Oct, Post-traumatic stress disorder, chronic F43.12 and Bipolar disorder, unspecified F31.9 [facility] [address] [place] [id number] [place] [address] Oct, Bipolar II disorder F31.81 ; PTSD (post-traumatic stress disorder) F43.10 and Generalized anxiety disorder F41.1 [facility] [id number] [place] [address] Oct, Post-traumatic stress disorder, chronic F43.12 and Bipolar disorder, unspecified F31.9 [facility] [address], [place] [address] Dec, Acute left otitis media H66.92 IMMUNIZATIONS No Known Immunizations SOCIAL HISTORY Never Assessed REASON FOR VISIT Establish Care, Pt was admitted to the hospital Mon for 3 days due to infection Rt foot., Pt also on antibiotic thre picc line, not sure of the medication, MARY JO Avery PLAN OF CARE Activity Details Follow Up 2 Weeks Reason:cellulitis of foot VITAL SIGNS Height 62 in 2018-05-29 Weight 226.6 lbs 2018-05-29 Temperature 98.1 degrees Fahrenheit 2018-05-29 Heart Rate 76 bpm 2018-05-29 Respiratory Rate 20 2018-05-29 BMI 41.44 kg/m2 2018-05-29 Blood pressure systolic 116 mmHg 2018-05-29 Blood pressure diastolic 72 mmHg 2018-05-29 MEDICATIONS Medication Instructions Dosage Frequency Start Date End Date Duration Status Hydrocodone-Acetaminophen 5-325 MG Orally every 6 hrs 1 tablet as needed 6h May, May, 07 days Active Trazodone HCl 50 MG Orally Once a day 1 tablet at bedtime as needed 24h Jan, 30 day(s) Not-Taking Lamictal 150MG Orally Once a day 1 tablet 24h Not-Taking Prazosin HCl 2 MG Orally Once a day at bedtime 1 capsule Oct, 30 days Not-Taking Paxil 20 MG Orally Once a day 1 tablet in the morning 24h Oct, 15 Not-Taking RESULTS No Results PROCEDURES No Known procedures INSTRUCTIONS MEDICATIONS ADMINISTERED No Known Medications MEDICAL (GENERAL) HISTORY Type Description Date Medical History asthma Medical History PTSD Medical History borderline personality disorder Surgical History Rt foot 01/2018 Hospitalization History Infection Rt foot 05/2018
== END 2018-12-05 14:19 | disposition home or self-care (01) ==
LOC: EDUNIT# 13:17 → ER 13:19
DX: S02.2XXA Fracture of nasal bones, initial encounter for closed fracture (principal); M41.9 Scoliosis, unspecified; F43.10 Post-traumatic stress disorder, unspecified; F31.9 Bipolar disorder, unspecified; Z87.891 Personal history of nicotine dependence; Z90.89 Acquired absence of other organs; W01.198A Fall on same level from slipping, tripping and stumbling with subsequent striking against other object, initial encounter; Y92.009 Unspecified place in unspecified non-institutional (private) residence as the place of occurrence of the external cause
CPT/HCPCS: 99282

== ENCOUNTER → 2019-03-28 | Outpatient (CLI) | payer MEDICAID ==
[~2019-03-28] MED LIST changes: +AMOX500C2 PO; +PREN-51 PO
--- NOTE | 2019-03-28 17:26 | Diagnostic Imaging Report ---
INDICATION: presentation. TECHNIQUE: Multiple real-time grayscale images were obtained over the gravid uterus. COMPARISON: 11/19/2018. FINDINGS: There is a single live fetus in a cephalic presentation. heart rate was recorded at 156 beats per minute. Placenta is fundal. Amniotic fluid index is 15.2 cm. Cervical length is 4.2 cm. Biometrical measurements are as follows: Biparietal 8.91 cm, age 36 weeks 1 days. Head circumference 32.82 cm, age 37 weeks 3 days. Abdominal circumference 33.36 cm, age 37 weeks 2 days. Femur length 7.29 cm, age 37 weeks 3 days. Sonographic estimate age: 37 weeks 1 days. Sonographic estimated date of delivery: 04/17/19. Estimated Weight: 3127 gm (+/- 457 gm). LMP percentile: 51%. heart rate: 156 beats per minute. number: 1 of 1. IMPRESSION: Single live IUP at 37 weeks gestational age demonstrating normal interval growth when compared with prior exam. No complicating features are identified. Dictated by: Dictated on workstation # [id number]
== END ==
LOC: RAD 11:55
PROVIDERS: ATTEND Obstetrics & Gynecology
DX: O32.9XX0 Maternal care for malpresentation of fetus, unspecified, not applicable or unspecified (principal); Z3A.37 37 weeks gestation of pregnancy
CPT/HCPCS: 76816

== ENCOUNTER 2019-04-08 13:08 | Inpatient (IN) | payer MEDICAID ==
[2019-04-08] VITALS (18 sets, daily range): BP systolic 97–141; BP diastolic 51–74
--- NOTE | 2019-04-08 13:00 | NUR ---
MEEK MORILLO admitted to room 3320-1, with an admitting diagnosis of induction of labor, on 04/08/[address] office via ambulation, accompanied by s/o.MEEK MORILLO introduced to surroundings, call light, bed controls, phone, TV, temperature control, lights, meal times, smoking policy, visitor policy, side rail policy, bathrooms and showers. Patient Rights given to patient in the handbook. MEEK MORILLO verbalizes understanding that [facility] is not responsible for the loss or damage to any personal effects or valuables that are kept in the patients posession during their hospitalization. The following Patient Care Plans were discussed with the patient: Discharge Planning, pain management, labor plan of care and labor medications. MEEK MORILLO verbalizes understanding of Interdisciplinary Patient Education. Patient and/or family were informed about the Rapid Response Team and its purpose.
[2019-04-08] MEDS ORDERED: TERBUTALINE INJ 1 MG/ML (BRETHINE) AMP SC PRN (13:15)
[2019-04-08] MEDS ORDERED: LIDOCAINE 1% INJ 20 ML 20 ML VIAL INJ PRN (13:15)
[2019-04-08] MEDS ORDERED: MINERAL OIL CONCENTRATE 99.9% 15 ML UDC TOP PRN (13:15)
[2019-04-08] MEDS ORDERED: fentaNYL INJECTION 100 MCG/2 ML AMP IVP PRN (13:15)
[2019-04-08] MEDS ORDERED: MISOPROSTOL 100 MCG (CYTOTEC) TAB PO NR (13:15)
[2019-04-08] MEDS: LACTATED RINGERS 1,000 ML IV SCH ×2 (14:20→15:20)
[2019-04-08 14:49] LABS: BASOPHILS % (AUTO) 0 % (0-10); EOSINOPHILS # (AUTO) 0.1 10^3/uL (0.0-0.3); EOSINOPHILS % (AUTO) 1 % (0-10); HEMATOCRIT 37 % (35-52); HEMOGLOBIN 12.4 G/DL (11.5-16.0); LYMPHOCYTES # (AUTO) 2.6 X 10^3 (1.0-4.0); LYMPHOCYTES % (AUTO) 29 % (12-44); MEAN CORPUSCULAR HEMOGLOBIN 28 PG (25-34); MEAN CORPUSCULAR HGB CONC 34 G/DL (32-36); MEAN CORPUSCULAR VOLUME 84 FL (80-99); MEAN PLATELET VOLUME 12.1 FL (7.4-10.4); MONOCYTES # (AUTO) 0.5 X 10^3 (0.0-1.0); MONOCYTES % (AUTO) 6 % (0-12); NEUTROPHILS # (AUTO) 5.7 X 10^3 (1.8-7.8); NEUTROPHILS % (AUTO) 64 % (42-75); PLATELET COUNT 282 10^3/uL (130-400); RED CELL DISTRIBUTION WIDTH 13.8 % (10.0-14.5); WHITE BLOOD COUNT 8.9 10^3/uL (4.3-11.0)
[2019-04-08] MEDS: D5 LR IV SOLUTION 1,000 ML IV SCH ×2 (15:20→22:06)
[2019-04-08] MEDS ORDERED: MISOPROSTOL 100 MCG (CYTOTEC) TAB PO SCH (17:15)
--- NOTE | 2019-04-08 17:30 | NUR ---
REACTIVE FHR TRACING. EFM REMOVED. Assisted UP to ambulate in [place].
[2019-04-08] MEDS ORDERED: OXYTOCIN/NORMAL SALINE 500 ML IV SCH (19:42)
[2019-04-08] MEDS: CATHETER FLUSH 10 ML SYR IV SCH (19:43)
[2019-04-08] MEDS ORDERED: guaiFENesin/DM (ROBITUSSIN DM) 10 ML UDC PO PRN (20:30)
[2019-04-08] MEDS ORDERED: ZOLPIDEM 5 MG (AMBIEN) TAB PO NR (22:00)
[2019-04-09] VITALS (41 sets, daily range): BP systolic 98–142; BP diastolic 52–87
[2019-04-09] MEDS: CATHETER FLUSH 10 ML SYR IV SCH ×2 (00:18→06:43)
[2019-04-09] MEDS: D5 LR IV SOLUTION 1,000 ML IV SCH (03:42)
[2019-04-09] MEDS ORDERED: PROMETHAZINE INJ 25 MG/ML (PHENERGAN) AMP IVP PRN (09:15)
[2019-04-09] MEDS ORDERED: OXYTOCIN/NORMAL SALINE 500 ML IV SCH (10:09)
[2019-04-09] MEDS ORDERED: BENZOCAINE/MENTHOL (DERMOPLAST) 56 ML CAN TP PRN (10:15)
[2019-04-09] MEDS ORDERED: TETANUS,DIPTH,PERTUSS P/F (BOOSTRIX) 0.5 ML VIAL IM ONE (10:15)
[2019-04-09] MEDS ORDERED: WITCH HAZEL(TUCKS) 40 EA JAR TOP PRN (10:15)
[2019-04-09] MEDS ORDERED: DIBUCAINE (NUPERCAINAL) 1% OINT 30 GM TOP PRN (10:15)
[2019-04-09] MEDS ORDERED: MEASLES,MUMPS,RUBELLA 1 EA INJ SQ ONE (10:15)
[2019-04-09] MEDS ORDERED: IBUPROFEN 600 MG (MOTRIN) TAB PO ONE ×2 (10:35→17:20)
[2019-04-09] MEDS ORDERED: CATHETER FLUSH 10 ML SYR IV SCH (14:00)
[2019-04-09] MEDS: ACETAMINOPHEN 500 MG TAB (TYLENOL) PO SCH (21:01)
[2019-04-09] MEDS: DOCUSATE SODIUM 100 MG (COLACE) CAP PO SCH (21:01)
--- NOTE | 2019-04-09 21:04 | NUR ---
pt resting in bed. assessment completed. pt requesting something extra for pain. notified. new orders received. pt going to shower. shower set up. pt denies any further needs. will continue to monitor.
[2019-04-09] MEDS: IBUPROFEN 600 MG (MOTRIN) TAB PO SCH (23:56)
[2019-04-10 04:00] VITALS: BP 106/51
[2019-04-10] MEDS: ACETAMINOPHEN 500 MG TAB (TYLENOL) PO SCH ×2 (05:26→14:50)
[2019-04-10] MEDS: IBUPROFEN 600 MG (MOTRIN) TAB PO SCH ×2 (05:26→12:40)
[2019-04-10 06:48] LABS: BASOPHILS % (AUTO) 0 % (0-10); EOSINOPHILS # (AUTO) 0.2 10^3/uL (0.0-0.3); EOSINOPHILS % (AUTO) 2 % (0-10); HEMATOCRIT 34 % (35-52); HEMOGLOBIN 11.3 G/DL (11.5-16.0); LYMPHOCYTES # (AUTO) 3.7 X 10^3 (1.0-4.0); LYMPHOCYTES % (AUTO) 36 % (12-44); MEAN CORPUSCULAR HEMOGLOBIN 28 PG (25-34); MEAN CORPUSCULAR HGB CONC 33 G/DL (32-36); MEAN CORPUSCULAR VOLUME 86 FL (80-99); MEAN PLATELET VOLUME 11.4 FL (7.4-10.4); MONOCYTES # (AUTO) 0.6 X 10^3 (0.0-1.0); MONOCYTES % (AUTO) 6 % (0-12); NEUTROPHILS # (AUTO) 5.9 X 10^3 (1.8-7.8); NEUTROPHILS % (AUTO) 57 % (42-75); PLATELET COUNT 259 10^3/uL (130-400); RED CELL DISTRIBUTION WIDTH 13.8 % (10.0-14.5); WHITE BLOOD COUNT 10.5 10^3/uL (4.3-11.0)
[2019-04-10] MEDS ORDERED: PRENATAL VITAMIN 1 EA TAB PO SCH (07:00)
[2019-04-10 08:00] VITALS: BP 124/80
[2019-04-10] MEDS ORDERED: FERROUS SULF 325 MG (IRON) TAB PO SCH (09:00)
[2019-04-10] MEDS: DOCUSATE SODIUM 100 MG (COLACE) CAP PO SCH (09:20)
[2019-04-10 12:00] VITALS: BP 94/52
[2019-04-10] MEDS ORDERED: IBUP-844 PO (15:42)
[2019-04-10] MEDS ORDERED: ACET-77 PO (15:42)
--- NOTE | 2019-04-10 15:44 | Discharge Inst-Women's Service ---
Discharge Inst-Women's Serv Depart Medication/Instructions New, Converted or Re-Newed RX: Transmitted to Pharmacy Final Diagnosis oligohydramnios 39 week gestation vaginal delivery Consults/Follow Up Additional Follow Up: Yes (6 week) Activity Activity: Activity as Tolerated Driving Instructions: You May Drive NO SMOKING: NO SMOKING Nothing Inside Vagina: No Douching, No [place], No Tampons Diet Discharge Diet: No Restrictions Symptoms to Report to : Bleeding Excessive, Pain Increased, Fever Over 101 Degrees F, Vaginal Bleeding Increase, Cramps in Feet or Legs, Vaginal Discharge OREN Munson DO Apr 10, 2019 3:44 pm
--- NOTE | 2019-04-10 16:00 | NUR ---
Dr Garcia to see patient and new orders for discharge received.
--- NOTE | 2019-04-10 16:45 | NUR ---
Discharge instructions explained, signed and copy to patient. pt verbalized understanding of instructions.
--- NOTE | 2019-04-10 17:00 | NUR ---
Discharged to home with parents. Secured in car seat and vehicle by parents. Accompanied by RN to vehicle. Addendum: 04/10/19 at 1707 by XAVI DUPREE RN farida multani
--- NOTE | 2019-04-10 17:00 | NUR ---
Discharged to home. ambulates self downstairs accompanied by and rn . To private vehicle with belongings in hand.
--- NOTE | 2019-05-09 07:28 | OB Labor & Delivery Record ---
Vag Delivery Note Vag Delivery Note Date of Delivery: 04/09/19 [employer] down at time of delivery. Delivery note late addition. Preoperative Diagnosis: Teresa Marin is a 28 /Para 5/4 ,Gestational Age 39 weeks with oligohydramnios or ROM (see H&p) Postoperative Diagnosis: Same Surgeon: OREN LAURA Delivery Type: vaginal Findings: Viable female infant, apgars 8/9, weight Lacerations: none Intact placenta with 3 vessel cord. There was a shoulder cord, delivered through, no nuchal cord or shoulder dystocia Estimated Blood Loss: 150 ml Complications: None Condition: Stable Description of Procedure: The patient is a 28 year old female who presented for induction due to possible ROM or oligohydramnios. She was admitted and informed consent was obtained. Her labor course was remarkable for cervical ripening with misoprostol and then augmentation with oxytocin. She progressed to complete dilatation and began to push. She was then set up for delivery. The 's head was delivered atraumatically in the OA position. The shoulders and remainder of the infant's body were then delivered without difficulty. Delivered upon the bed due to rapidity of dilati on from 7-complete. Upon delivery, the head was held below the level of the perineum and the mouth and nares were bulb suctioned. The cord was doubly clamped and cut and the was handed off to the pediatric staff. An intact placenta with 3-vessel cord delivered via Vickie and there was found to be minimal bleeding.~ Vigorous fundal massage was performed and the fundus was fo und to be firm. IV oxytocin was given. Examination of the vagina and perineum revealed no laceration. Following the delivery, sponge, instrument and needle counts were correct. Mom and baby were both in stable condition in the labor suite. Vitals - Labs Labs Microbiology 04/08/19 Urine Culture - Final, Complete NO GROWTH ORNE LAURA DO May 09, 2019 7:28 am
== END 2019-04-10 17:00 | disposition home or self-care (01) | DRG 807 ==
LOC: WSo 13:08 → LDRP 13:08 → WSo 13:12 → LDRP 13:12
PROVIDERS: ADMIT Obstetrics & Gynecology; ATTEND Obstetrics & Gynecology
PROC: 3E0DXGC Introduction of Other Therapeutic Substance into Mouth and Pharynx, External Approach (ICD-10-PCS; 2019-04-08)
PROC: 10E0XZZ Delivery of Products of Conception, External Approach (ICD-10-PCS; principal; 2019-04-09)
DX: O41.03X0 Oligohydramnios, third trimester, not applicable or unspecified (principal); O69.82X0 Labor and delivery complicated by other cord entanglement, without compression, not applicable or unspecified; Z3A.39 39 weeks gestation of pregnancy; O99.344 Other mental disorders complicating childbirth; F43.10 Post-traumatic stress disorder, unspecified; Z37.0 Single live birth
CPT/HCPCS: 36415; 85025; 86850; 86900; 86901; 87088